=== PATIENT | female | born 1960 | race Caucasian/White ===

== ENCOUNTER 2020-04-21 11:57 | Outpatient (CLI) | payer BC, SELFPAY ==
--- NOTE | ~2020-04-21 | XR_ITS ---
EXAMINATION: XR hip BI 2V w AP pelvis EXAM DATE: 04/21/2020 12:27 INDICATION: No known recent injury provided at this time. Pain of the hips. TECHNIQUE: Each hip imaged independently (separate right and also left hip) 'frog leg' and frontal p rojections for interpretation. Frontal projection pelvis. There is no prior study for comparison. FINDINGS: No radiographic evidence of hip avascular necrosis. There is mild symmetric bilateral hip primary osteoarthritis. There are no acute fractures or dislocations identified. There is no subcuta neous gas. The soft tissue is unremarkable. There are no radiopaque foreign bodies. IMPRESSION: Mild symmetric bilateral hip osteoarthritis. Reviewed, dictated and finalized at location A.
--- NOTE | ~2020-04-21 | XR_ITS ---
EXAMINATION: XR knee LT 2V DATE: 04/21/2020 12:26 INDICATION: Left knee pain. TECHNIQUE: 2 views of left knee were obtained. COMPARISON: None. FINDINGS: Bone alignment is normal. No fracture. There is mild osteoarthritis of patellofemoral reymundo rtment. No knee joint effusion. IMPRESSION: 1. Mild left knee osteoarthritis. Reviewed, dictated and finalized at location B.
--- NOTE | ~2020-04-21 | XR_ITS ---
XR lumbar spine min 4V DATE: 04/21/2020 12:27 INDICATION: Left side back pain. Sciatica. TECHNIQUE: AP, lateral, coned lateral lumbosacral views. COMPARISON: None FINDINGS: There is moderate levoscoliosis of the thoracolumbar spine. There is severe degenerative disc disease at L2-3. There is moderate degenerative disc disease at L3-4. No fracture or bone destruction. The lower thoracic and lumbar pedicles are intact. The sacroiliac joints are normal. There is extensive calcification of the abdominal aorta and iliac arteries. IMPRESSION: Levoscoliosis and multi-level degenerative disc disease Reviewed, dictated and finalized at location A.
== END 2020-04-21 11:58 | disposition home or self-care (01) ==
LOC: ANHIMG 12:04
PROVIDERS: PCP Family Medicine; Visit Provider Family Medicine
DX: M54.42 Lumbago with sciatica, left side (principal); M25.551 Pain in right hip; M25.552 Pain in left hip; M25.562 Pain in left knee; M16.0 Bilateral primary osteoarthritis of hip; M41.86 Other forms of scoliosis, lumbar region; M51.36 Other intervertebral disc degeneration, lumbar region
CPT/HCPCS: 72110; 73521; 73560

== ENCOUNTER → 2021-05-20 11:38 | Outpatient (CLI) | payer BC, SELFPAY ==
--- NOTE | ~2021-05-20 | XR_ITS ---
EXAMINATION: XR knee LT min 4V DATE: 05/20/2021 11:56 INDICATION: Left knee pain. TECHNIQUE: 4 views of left knee were obtained. COMPARISON: Left knee radiographs 04/21/2020 FINDINGS: Bone alignment is normal. No fracture. Joint spaces are well maintained. There is no knee j oint effusion. IMPRESSION: 1. Normal left knee. Reviewed, dictated and finalized at location A. IMPRESSION: 1. Normal left knee.
== END ==
PROVIDERS: PCP Family Medicine; Visit Provider Family Medicine
DX: M25.562 Pain in left knee (principal)
CPT/HCPCS: 73564

== ENCOUNTER → 2022-08-26 10:54 | Outpatient (CLI) | payer BC, SELFPAY ==
--- NOTE | ~2022-08-26 | XR_ITS ---
AP view of the pelvis and AP and lateral views of the bilateral hips Clinical history: Pain Findings: No acute fracture or dislocation is seen. Osseous alignment is anatomic. Bilateral hip and SI joint spaces are preserved. There is calcific focus just above the right greater trochanter.. Impression: Calcific tendinitis of a right gluteal tendon, likely gluteus medius versus minimus. Reviewed, dictated and finalized at location [] DCARE ADMINISTRATOR Impression: Calcific tendinitis of a right gluteal tendon, likely gluteus medius versus min imus.
--- NOTE | ~2022-08-26 | XR_ITS ---
Left Hand Technique: PA, oblique, and lateral views were obtained. Clinical History: Pain Findings: No acute fracture or dislocation is seen. Osseous alignment is anatomic. Joint spaces are p reserved. Soft tissues are unremarkable. Impression: Unremarkable left hand. Reviewed, dictated and finalized at location [] ER UP Impression: Unremarkable left hand.
--- NOTE | ~2022-08-26 | XR_ITS ---
Left wrist Technique: PA, oblique, lateral, and ulnar deviation views were obtained. Clinical History: Pain Findings: No acute fracture or dislocation is seen. Osseous alignment is anatomic. Joint spaces are p reserved. Soft tissues are unremarkable. Impression: Unremarkable left wrist radiographs. Reviewed, dictated and finalized at location [] NG VAN DRIVER Impression: Unremarkable left wrist radiographs.
--- NOTE | ~2022-08-26 | XR_ITS ---
Lumbosacral Spine: AP, oblique, and lateral views Clinical History: Back pain COMPARISON: 04/21/2020 Findings: Mild levoscoliosis noted. The vertebral bodies and posterior elements are intact. Moderate degenerative disc space narrowing is present at L2-L3.. And facet joint degenerative changes are pre sent at L4-L5 and L5-S1. The sacroiliac joints are normally outlined. Impression: Mild levoscoliosis, and degenerative changes, as detailed above, similar to 04/21/2020. Reviewed, dictated and finalized at location [] ING SUPERVISOR Impression: Mild levoscoliosis, and degenerative changes, as detailed above, similar to 04/12.
== END ==
PROVIDERS: PCP Family Medicine; Visit Provider Family Medicine
DX: M25.532 Pain in left wrist (principal); M79.642 Pain in left hand; M25.551 Pain in right hip; M54.42 Lumbago with sciatica, left side
CPT/HCPCS: 72110; 73110; 73130; 73521

== ENCOUNTER 2023-01-21 19:25 | Observation (INO) | payer BC, SELFPAY ==
[2023-01-21] VITALS (7 sets, daily range): BP systolic 112–131; BP diastolic 72–84; PULSE 86–107; RESP 14–18; TEMP 36.4–36.6; O2SAT 97–100; BMI 23.5
--- NOTE | ~2023-01-21 | MR_ITS ---
EXAMINATION: MR brain/brain stem wo/w con DATE: 01/22/2023 10:07 INDICATION: Transient neurologic changes. History of brain cancer. TECHNIQUE: Magnetic resonance imaging (MRI) of the brain and brainstem was performed without and with 12 cc MultiHance intravenous contrast. Sequences included sagittal and axial T1-weighted SE, axial d iffusion-weighted FS SE, axial T2*-weighted GRE, axial T2-weighted FLAIR Propeller, and axial T2-weig hted Propeller. Apparent diffusion coefficient (ADC) maps were created. COMPARISON: CTA dated 01/21/2023. FINDINGS: There are chronic infarctions of the left frontal and parietal lobes. There are scattered s evere no abnormally enhancing masses. Orbits are symmetric. Structures of the posterior fossa includi ng 7/8th cranial nerve complexes are unremarkable. periventricular and subcortical white matter lopez es, most likely related to small vessel ischemic disease (microangiopathy). There is mild mucosal thi ckening of the maxillary and ethmoid sinuses. No acute infarction, hemorrhage or mass effect. IMPRESSION: 1. No acute intracranial abnormality. 2: Chronic infarctions of the left frontal and parietal lobes. 3: Chronic age-related findings. 4: Moderate sinus disease. Reviewed, dictated and finalized at location A.
--- NOTE | ~2023-01-21 | CT_ITS ---
EXAMINATION: CTA brain carotid DATE: 01/21/2023 19:56 INDICATION: Left hemiparesis. TECHNIQUE: Computed tomographic angiography (CTA) of the head was performed without and with 100 mL O mnipaque-350 intravenous contrast. CTA of the neck was performed with intravenous contrast. Automated exposure control and iterative reconstruction technique were employed. The dose-length product was 1 723.99 mGy-cm. Maximum intensity projection and volume rendered 3D-reconstructions were created by maldonado parra technologist on a separate workstation. COMPARISON: None. FINDINGS: HEAD CTA: There are old infarcts involving left frontal and parietal lobes. There are scattered areas of low attenuation in the cerebral white matter. There is no intracranial hemorrhage, acute infarcti on, or abnormal intracranial mass lesion. The ventricles are normal in size. There are likely changes of ocular lens replacement surgeries. There are changes of left-sided craniotomy. There is an osteom a at superior aspect of the skull. There is mucosal thickening in the paranasal sinuses. There is a s mall right mastoid effusion. There is left vertebral artery is dominant. There is no significant sten osis of basilar artery or the posterior cerebral arteries. The posterior communicating arteries are n ormal. There is no significant stenosis of the intracranial internal carotid arteries or anterior or middle cerebral arteries. Anterior communicating artery is normal. There is no aneurysm. NECK CTA: There is mild emphysema. There is a 15 mm nodule in right upper lobe. There are no patholog ically enlarged lymph nodes. Aortic atherosclerosis is noted. There is no significant stenosis of the vertebral arteries. There is plaque in the proximal internal carotid arteries. There is 0% stenosis of the proximal right internal carotid artery relative to normal distal artery lumen diameter (NASCE T criteria). There is 0% stenosis of the proximal left internal carotid artery relative to normal dis zahida artery lumen diameter. There is severe cervical spondylosis. There is mild chronic anterior wedgi ng of C6 and C7 vertebral bodies. Partially visualized is a right internal jugular port. IMPRESSION: 1. Old infarcts involving the left frontal and parietal lobes. I discussed this result with Dr. Tracey. 2. Extensive nonspecific cerebral white matter disease, which likely represents chronic small vessel ischemic disease. 3. No aneurysm or significant intracranial arterial stenosis. 4. 0% stenosis of the proximal internal carotid arteries relative to normal distal artery lumen diame ters (NASCET criteria). 5. 15 mm right upper lobe pulmonary nodule suspicious for primary bronchogenic carcinoma or metastati c disease. Comparison with outside imaging is recommended. Reviewed, dictated and finalized at location E. IMPRESSION: 1. Old infarcts involving the left frontal and parietal lobes. I discussed this result with Dr. Tracey. 2. Extensive nonspecific cerebral white matter disease, which likely represents chronic small vessel ischemic disease. 3. No aneurysm or significant intracranial arterial stenosis. 4. 0% stenosis of the proximal internal carotid arteries relative to normal dis zahida artery lumen diameters (NASCET criteria). 5. 15 mm right upper lobe pulmonary nodule suspicious for primary bronchogenic carcinoma or metastatic disease. Comparison with outside imaging is recommended .
--- NOTE | ~2023-01-21 | XR_ITS ---
EXAMINATION: XR chest 1V portable DATE: 01/21/2023 20:11 INDICATION: Left hemiparesis. Bladder and lung cancer. TECHNIQUE: A single frontal view of the chest was obtained. COMPARISON: Chest 2 views 06/09/2006 FINDINGS: There is a nodule in right upper lobe. No pleural effusion or pneumothorax. The heart size is normal. There is a right internal jugular port with tip at superior cavoatrial junction. There are surgical clips in the left breast and left axilla. IMPRESSION: 1. Nodule in right lung upper lobe, consistent with primary bronchogenic carcinoma or metastatic dise ase. Reviewed, dictated and finalized at location E. IMPRESSION: 1. Nodule in right lung upper lobe, consistent with primary bronchogenic carcin getachew or metastatic disease.
[2023-01-21 19:51] LABS: Estimated Glomerular Filt Rate > 60
--- NOTE | 2023-01-21 20:00 | ECG_ITS ---
Measurements Intervals Foley Rate: 90 P: 59 NH: 168 QRS: 66 QRSD: 90 T: 40 QT: 370 QTc: 455 Interpretive Statements SINUS RHYTHM NORMAL ECG NO PREVIOUS ECG AVAILABLE FOR COMPARISON Electronically Signed On 01-21-2023 20:19:31 CDT by Alex Meza D.O.
[2023-01-21 20:15] LABS: Basophils Percent Auto 0.1 % (0.2-1.2); Eosinophils Absolute Auto 0.2 K/mm3 (0-0.3); Eosinophils Percent Auto 2.4 % (0-4.4); Hematocrit 46.2 % (37.0-47.0); Hemoglobin 15.6 g/dL (12.0-15.0); Immature Granulocyte Absolute 0.03 K/mm3 (0.00-0.031); Immature Granulocyte Percent A 0.4 % (0-0.5); Lymphocytes Absolute Auto 2.54 K/mm3 (0.9-3.2); Lymphocytes Percent Auto 32.5 % (18.3-44.2); Mean Corpuscular HGB Conc 33.8 g/dl (32-36); Mean Corpuscular Hemoglobin 29.9 pg (26-34); Mean Corpuscular Volume 88.5 fl (80-100); Mean Platelet Volume 10.1 fl (7.4-10.4); Monocytes Absolute Auto 0.8 K/mm3 (0.1-0.6); Neutrophils Absolute Auto 4.3 K/mm3 (1.3-6.7); Neutrophils Percent Auto 54.6 % (45.5-73.1); Platelet Count Result 211 k/mm3 (150-375); Red Blood Count 5.22 M/mm3 (4.2-5.4); Red Cell Distribution Width 12.3 % (11.5-14.5); White Blood Count 7.8 K/mm3 (4.5-10.0)
[2023-01-21 20:24] LABS: Alanine Aminotransferase 66 U/L (6-35); Albumin Level 4.5 g/dL (3.5-5.1); Alkaline Phosphatase 40 U/L (38-126); Anion Gap 7 mmol/L (8-16); Aspartate Amino Transferase 56 U/L (14-36); Bilirubin,Total 0.5 mg/dL (0.2-1.3); Blood Urea Nitrogen 21 mg/dL (7-17); Calcium 8.9 mg/dL (8.4-10.2); Carbon Dioxide 29 mmol/L (22-30); Chloride 97 mmol/L (98-107); Estimated Glomerular Filt Rate > 60; Glucose 93 mg/dL (65-110); Sodium 133 mmol/L (137-145)
[2023-01-21 20:26] LABS: Prothrombin Time 13.1 Seconds (11.1-14.7)
[2023-01-21 20:27] LABS: Partial Thromboplastin Time 28.7 SECONDS (22.3-36.8)
--- NOTE | 2023-01-21 20:30 | ED.GENADULT ---
HPI - General Adult General Chief complaint: Neuro Symptoms/Deficit Stated complaint: aphasic at 1730, no symptoms now Time Seen by Provider: 01/21/23 19:40 History of Present Illness HPI narrative: A 62-year-old female with a history of breast lung bladder and brain cancer presenting ED with stroke-like symptoms. At 5: 3:00 p.m. the patient noticed that she was unable to speak. This lasted 15 minutes before she had complete resolution of her symptoms. Then at 6:00 a.m. she was having trouble writing. That also resolved after approximately 15 minutes. Patient then came to the hospital. She is currently asymptomatic. She denies any other complaints at this time. Patient has had metastasis to the brain with a craniotomy as well as full brain radiation. Patient obtained her oncology care at [facility] but has recently been switched to [facility] due to insurance reasons. Related Data Home Medications Medication Instructions Recorded Confirmed acetaminophen 325 mg capsule 325 mg PO Q6H PRN 06/01/21 08/26/22 (Tylenol) folic acid 1 mg tablet 1 mg PO DAILY 06/01/21 08/26/22 collagen Hydrolysate BYMOUTH 04/21/22 08/26/22 dexamethasone 4 mg tablet 8 mg PO DAILY PRN chemotherapy 04/21/22 08/26/22 [id number]-Gn-sjax-minerals 18 tablet PO . daily 04/21/22 08/26/22 mg-0.4 mg tablet nasal moisturizing spray intranasal 04/21/22 08/26/22 Allergies Allergy/AdvReac Type Severity Reaction Status Date / Time No Known Allergies Allergy Mild Verified 06/01/21 13:19 [facility] Past Medical History Medical History Abnormal fasting glucose Acute bilateral low back pain with left-sided sciatica Acute non-recurrent maxillary sinusitis Acute pain of left wrist X-ray unremarkable 08/26/2022. Acute right hip pain X-ray unremarkable except for evidence of calcific tendinitis in the gluteal area of the right hip 08/26/2022. Allergic conjunctivitis Anxiety At high risk for falls (~07/2022) the patient has fallen twice in the last month. She will be careful not to fall. 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 Polycythemia Seasonal allergic rhinitis Seizure disorder Urinary bladder cancer Vertigo Surgical History Surgical History S/P craniotomy Family History Family History Father Diabetes mellitus Bladder cancer Mother Diabetes mellitus Cerebrovascular accident Social History Social History Years smoked: 25 Smoking status: Former smoker Tobacco type: cigarettes Smoking end date: 09/12/06 Alcohol intake: current Alcohol use details: socially Substance use: never Substance use type: does not use Current Housing: Decline to Answer Concerned About Future Housing: Decline to Answer Difficulty Paying Gas/Electric Bills: Decline to Answer Difficulty Paying for Meds: Decline to Answer Currently Unemployed: Decline to Answer Education: Decline to Answer Difficulty w/ Childcare or Family Care: Decline to Answer Living arrangements: alone Occupation/Education: retired Gender identity (if verbalized by the patient): Female Exam Narrative: APPEARANCE: No apparent distress. Hea
[2023-01-21 20:36] LABS: Troponin I < 0.012 ng/mL (0.000-0.034)
[2023-01-21] MEDS: ASPIRIN 81 MG CHEWABLE TABLET 324 MG PO (21:01)
[2023-01-21] MEDS: SODIUM CHLORIDE 0.9% IV 1,000 ML 999 ML IV CONT (21:01)
--- NOTE | 2023-01-21 23:11 | ADMGEN ---
This patient, Leann Newman, was admitted to Medical Room 348-01. Patient/family oriented to hospital policies and general routines including ID bracelet, bed and alarms, visiting hours, pain management, procedures, bathroom and other care routines, personal items, smoking policy, room service/diet, and visiting hours. Information on how to activate the Rapid Response Team has been discussed. Patient/Family are encouraged to report perceived risks to care and to ask questions if they do not understand what they are told or what they should do.
--- NOTE | 2023-01-21 23:31 | PM.IMHP ---
H&P: HPI History of Present Illness Date/Time: 01/21/23 23:31 Chief Complaint: Difficulty speaking, difficulty writing Narrative: 62-year-old female with a past medical history of anxiety, stroke, COPD and metastatic lung cancer with metastases to the brain who presented to the ER with neurologic changes. Patient reported that around 17:30 she was unable to speak for 15-20 minutes. She states that she could not get any words out. Then approximately 30 minutes later after her initial symptoms had resolved she states that she was at a visitation at a and went to sign a check. She is stated that she was having more trouble than usual riding in that her penmanship appeared shaky. She does have some trouble in has to concentrate when she is writing ever since she had her brain tumor removed in 2019. She reported that a couple of minutes later she went to sign the cast book and was able to sign her name without difficulty. She had similar symptoms in July 2021. Her CTA of the head and neck performed in the ER today demonstrated old infarcts involving the left frontal and parietal lobes and extensive nonspecific cerebral white matter disease likely representing chronic small-vessel ischemia. She denies history of prior CVA. She has also had history of craniotomy with resection of brain tumor as well as full brain radiation. She went for her follow-up appointment with Oncology last week. They performed an MRI of the brain and brainstem and patient reports that her imaging was stable and unchanged from prior. She reports that she has been feeling more tired than usual. She evidently recently got back from a trip to [place]. After she returned home she had several days of fatigue and diarrhea. She has some that she had the flu. Her diarrhea has since resolved. She still reports feeling fatigued. She has not been having any fevers or chills. She denies any persistent nausea. She thinks that she may have had a history of an irregular heartbeat but does not have a known history of atrial fibrillation to her knowledge. She denies any upper respiratory symptoms. She denies any headaches or vision changes. She did have a history of 1 time seizure when she was 1st diagnosed with brain Mets and prior to the resection. She denies having any seizures after that time She was initially treated at [facility] for her cancer but recently had to switch her care to [facility] due to insurance issues. I suggested that the ER contact [facility] since they had the patient's most recent imaging and her following for her malignancy as I thought it would be best for comparison of imaging specially in the setting of possible acute ischemic event. ER physician [facility] who accepted the patient in transfer but stated that it may be couple of days prior to the patient receiving a bed. The patient was subsequently admitted here for evaluation. At the time of my evaluation the patient was quite upset that she may end up being transferred to [facility]. She states that they do not have any of her prior imaging and I tried to explain to her that she recently had an MRI so that would be her baseline. Patient did not agree with this and would rather stay at our hospital. Source of information is patient report, ER physician report, and external medical records. Review of Systems Review of Systems: 12 systems were reviewed with pertinent positives and negatives per HPI. Except as documented in the HPI, all other systems were reviewed and are negative. [facility] Past Medical History Medical History (Updated 01/22/23 @ 04:19 by Perla Mireles, DO) Abnormal fasting glucose Acute right hip pain X-ray unremarkable except for evidence of calcific tendinitis in the gluteal area of the right hip 08/26/2022. Allergic conjunctivitis At high risk for falls (~07/2022) the patient has fallen twice in the last month. She will be careful not to fall. Bilateral hip pain BMI 23
[2023-01-22] VITALS: PULSE 98
--- NOTE | 2023-01-22 | ECHO_ITS ---
Patient Info Name: Leann Newman Age: 62 years : 1960 Gender: Female Ht: 63 in Wt: 132 lbs BSA: 1.64 m2 HR: 101 bpm BP: 116 / 61 mmHg Heart Rhythm: Sinus Rhythm Technical Quality: Good Exam Date: 01/22/2023 8:07 AM Exam Location: [facility] Card Pulmonary Patient Status: Inpatient Admit Date: 01/21/2023 Staff Ordering Physician: Mahin Gallo Cover Machine Operator: Leann Moreno RDCS Attending Provider: Perla Mireles DO Referring Physician: Sabino RESENDIZ; Exam Type: CA echo doppler w bubble study Study Info Indications R29.5 - Transient paralysis Complete two-dimensional, color flow and Doppler transthoracic echocardiogram is performed with agitated saline. Contrast/Agitated Saline Contrast/Ag. Saline: Agitated Saline Amount: 10.00 ml Summary 1. Left ventricular size and thickness with good contractility of all segments. Ejection fraction is 55-60%. Normal diastolic function. 2. No significant valve disease. 3. No evidence of intracardiac shunting during normal respiration or Valsalva by bubble study. 4. Normal sinus rhythm. Left Ventricle Left ventricular chamber dimension is normal. Left ventricular systolic function is normal, estimated at 55-60%. There is no increased left ventricular wall thickness. Left ventricular septal wall motion is normal. The left ventricular diastolic function is normal. Right Ventricle Right ventricular chamber dimension is normal. Right ventricular systolic function is normal. Left Atria Left atrial chamber dimension is normal. Right Atria Right atrial chamber dimension is normal. Aortic Valve The aortic valve is trileaflet. There is no aortic valve sclerosis. There is no aortic valve stenosis. There is no aortic valve regurgitation. Pulmonic Valve The pulmonic valve is normal. There is no pulmonic valve stenosis. There is no pulmonic regurgitation. Mitral Valve The mitral valve has normal leaflets. There is no mitral valve stenosis. There is no mitral valve regurgitation. Tricuspid Valve The tricuspid valve leaflets are normal. There is no significant tricuspid valve stenosis. There is no tricuspid valve regurgitation. No pulmonary hypertension, estimated pulmonary arterial systolic pressure is Empty. Pericardium/Pleural The pericardium appears normal. There is no pericardial effusion. Inferior Vena Cava Normal inferior vena cava with >50% collapse upon inspiration consistent with Empty right atrial pressure, Empty. Aorta The aortic root size at the sinus of Valsalva is normal. The prox ascending aorta size is normal. Left Ventricular Outflow Tract Name Value Normal LVOT 2D LVOT Diameter 1.9 cm LVOT Doppler LVOT Peak Gradient 2 mmHg LVOT Mean Gradient 1 mmHg LVOT VTI 15 cm LVOT VTI/AV VTI Ratio 0.9 LVOT Stroke Volume 43 ml LVOT CO 3.8 l/min LVOT CI 2.3 l/min/m2 Pulmonic Valve Nam
[2023-01-22] MEDS: ROSUVASTATIN 10 MG TABLET PO (01:16)
[2023-01-22 04:00] VITALS: PULSE 87
[2023-01-22 04:01] VITALS: BP 116/61; PULSE 100; RESP 18; TEMP 36.6; O2SAT 96
[2023-01-22] MEDS: CENTRAL LINE FLUSH 10 ML IV PUSH (05:46)
[2023-01-22 06:24] LABS: Cholesterol 133 mg/dL (0-200); HDL Direct 43 mg/dL; Triglycerides 143 mg/dL (<150)
[2023-01-22 06:35] LABS: LDL Cholesterol Direct 63 mg/dL
[2023-01-22 07:35] VITALS: PULSE 82; RESP 18; O2SAT 96
[2023-01-22] MEDS: UMECLIDINIUM/VILANTEROL 62.5-25 MCG ELLIPTA 1 PUFF INHALATION (07:35)
[2023-01-22] MEDS: ACETAMINOPHEN 325 MG TABLET 650 MG PO (08:06)
--- NOTE | 2023-01-22 08:40 | PM.IMPN ---
Progress Note: A&P Assessment and Plan (1) Transient neurological symptoms: Code(s): R29.818 - Other symptoms and signs involving the nervous system Status: Acute Assessment and Plan: Differential includes seizure, TIA/CVA, or recurrent malignant lesion. [facility] was contacted as they are familiar with the patient's case and at prior comparison studies available given patient's history of brain tumor. Neurology at [facility] has accepted the patient transfer but patient is awaiting bed placement. The patient has been admitted while awaiting bed placement however, the patient states that [facility] with like to receive all of her care here since she does not have a neurologist at [facility]. Will order MRI of the brain and brainstem with and without contrast. Our neurologist has been consulted. Patient received full-dose aspirin in the ER. Will continue to monitor neuro checks q.4 hours. The patient has been placed on telemetry to evaluate for possible underlying cardiac rhythm issues such as AFib which could lead to increased risk of stroke especially since patient has evidence of likely prior CVAs on imaging. Await further recommendations from Neurology. (2) Non-small cell carcinoma of lung, right: Onset Date: ~2019 Code(s): C34.91 - Malignant neoplasm of unspecified part of right bronchus or lung Status: Acute (3) COPD (chronic obstructive pulmonary disease): Qualifiers: COPD type: unspecified COPD Qualified Code(s): J44.9 - Chronic obstructive pulmonary disease, unspecified Code(s): J44.9 - Chronic obstructive pulmonary disease, unspecified Status: Acute Assessment and Plan: No evidence of exacerbation. Continue home inhalers. Time Spent With Patient Time: 48 minutes Time with patient: Greater than 35 minutes Subjective Date/time seen: 01/22/23 08:40 Interval history: 01/22/23 01/21/23? 23:31 62-year-old female with a past medical history of anxiety, stroke, COPD and metastatic lung cancer with metastases to the brain who presented to the ER with neurologic changes.? Patient reported that around 17:30 she was unable to speak for 15-20 minutes.? She states that she could not get any words out.? Then approximately 30 minutes later after her initial symptoms had resolved she states that she was at a visitation at a and went to sign a check.? She is stated that she was having more trouble than usual riding in that her penmanship appeared shaky.? She does have some trouble in has to concentrate when she is writing ever since she had her brain tumor removed in 2019.? She reported that a couple of minutes later she went to sign the cast book and was able to sign her name without difficulty.? She had similar symptoms in July 2021.? Her CTA of the head and neck performed in the ER today demonstrated old infarcts involving the left frontal and parietal lobes and extensive nonspecific cerebral white matter disease likely representing chronic small-vessel ischemia.? She denies history of prior CVA.? She has also had history of craniotomy with resection of brain tumor as well as full brain radiation.? She went for her follow-up appointment with Oncology last week.? They performed an MRI of the brain and brainstem and patient reports that her imaging was stable and unchanged from prior.? She reports that she has been feeling more tired than usual.? She evidently recently got back from a trip to [place].? After she returned home she had several days of fatigue and diarrhea.? She has some that she had the flu.? Her diarrhea has since resolved.? She still reports feeling fatigued.? She has not been having any fevers or chills.? She denies any persistent nausea.? She thinks that she may have had a history of an irregular heartbeat but does not have a known history of atrial fibrillation to her knowledge.? She denies any upper respiratory symptoms.? She denies
[2023-01-22 08:56] LABS: Hemoglobin A1C 5.8 % (<5.7)
--- NOTE | 2023-01-22 09:30 | PM.DS ---
DS: Admitting Diagnosis Discharge Date 01/22/23929 Admitting Diagnosis Episode of neurological changes DS: Discharge Diagnosis Discharge Diagnosis (1) Transient neurological symptoms: Code(s): R29.818 - Other symptoms and signs involving the nervous system Status: Acute Assessment and Plan: Differential includes seizure, TIA/CVA, or recurrent malignant lesion. [facility] was contacted as they are familiar with the patient's case and at prior comparison studies available given patient's history of brain tumor. Neurology at [facility] has accepted the patient transfer but patient is awaiting bed placement. The patient has been admitted while awaiting bed placement however, the patient states that she does not wish to go to [facility] with like to receive all of her care here since she does not have a neurologist at [facility]. Will order MRI of the brain and brainstem with and without contrast. Our neurologist has been consulted. Patient received full-dose aspirin in the ER. Will continue to monitor neuro checks q.4 hours. The patient has been placed on telemetry to evaluate for possible underlying cardiac rhythm issues such as AFib which could lead to increased risk of stroke especially since patient has evidence of likely prior CVAs on imaging. Await further recommendations from Neurology. (2) Non-small cell carcinoma of lung, right: Onset Date: ~2019 Code(s): C34.91 - Malignant neoplasm of unspecified part of right bronchus or lung Status: Acute (3) COPD (chronic obstructive pulmonary disease): Qualifiers: COPD type: unspecified COPD Qualified Code(s): J44.9 - Chronic obstructive pulmonary disease, unspecified Code(s): J44.9 - Chronic obstructive pulmonary disease, unspecified Status: Acute Assessment and Plan: No evidence of exacerbation. Continue home inhalers. DS: Summary Hospital Course Hospital Course: patient is a 62-year-old female with a past medical history of anxiety, stroke, COPD, metastatic lung cancer who presented to the ED with complaints of neurological changes. Patient stated she was awake and went to sinus checking was unable to she also had a moment where she was unable speak for 10-20 minutes. All symptoms have resolved. Patient was noted to have old infarcts on the CTA and 0% stenosis bilaterally. MRI was completed and did not show any acute abnormalities. Lipid panel was stable with LDLs less than 70. Hemoglobin A1c was 5.8. Neurology was consulted. Patient denies any current symptoms. Patient is stable for discharge at this time. Status at Discharge Functional status at discharge: independent ambulation Overall status at discharge: patient is progressing back to baseline Time Spent with Patient Time attestation: Total time spent providing and/or coordinating discharge services: 48 minutes Time spent: Greater than 30 minutes Specific discharge activities: Diagnostic testing, chart review, developing a treatment plan, education, care coordination documentation, physical exam, result review Exam Narrative: General: well-nourished, well-appearing 62-year-old female, sitting up in chair, comfortable, NARD Neuro: awake, alert and oriented x4, speech clear, no focal neuro deficits noted HEENMT: normocephalic, atraumatic, EOMI, sclerae anicteric, moist oral mucosa Respiratory: Clear to auscultation bilaterally without crackles, rhonchi or wheezes, nonlabored breathing Cardio: regular rate, regular rhythm with S1-S2 Abdomen: nondistended, normoactive bowel sounds, soft, nontender to palpation Extremities: no edema, erythema, or tenderness to palpation, DP pulses 2+ bilaterally Skin: no rashes or lesions, warm and dry Psych: appropriate mood and affect, judgment and insight intact DS: Data Data Completed and Pending Labs on day of discharge: Labs from last 24 hours 01/22/23 01/21/23 01/21/23 06:09 20:09 19:48 WBC 7.8 RBC 5.
[2023-01-22] MEDS: HEPARIN SODIUM LOCK FLUSH 500 UNITS/5 ML SYRINGE IV PUSH (13:55)
[2023-01-27 16:53] LABS: Glucose Point of Care 94 mg/dl (65-105)
== END 2023-01-22 14:40 | disposition home or self-care (01) ==
LOC: ANHED 20:42 → ANH3MED 01-22 11:54
PROVIDERS: Admitting Provider Internal Medicine; Emergency Provider Emergency Medicine; PCP Family Medicine; Visit Provider Nurse Practitioner
DX: R29.818 Other symptoms and signs involving the nervous system (principal); C34.91 Malignant neoplasm of unspecified part of right bronchus or lung; C79.31 Secondary malignant neoplasm of brain; J44.9 Chronic obstructive pulmonary disease, unspecified; R47.01 Aphasia; F41.9 Anxiety disorder, unspecified; Z91.81 History of falling; I25.10 Atherosclerotic heart disease of native coronary artery without angina pectoris; F32.A Depression, unspecified; G89.29 Other chronic pain; M54.42 Lumbago with sciatica, left side; M54.41 Lumbago with sciatica, right side; G47.00 Insomnia, unspecified; E78.5 Hyperlipidemia, unspecified; R29.5 Transient paralysis; D75.1 Secondary polycythemia; R56.9 Unspecified convulsions; R42 Dizziness and giddiness; Z79.1 Long term (current) use of non-steroidal anti-inflammatories (NSAID); Z79.899 Other long term (current) drug therapy; F10.90 Alcohol use, unspecified, uncomplicated; R90.82 White matter disease, unspecified; Z87.891 Personal history of nicotine dependence; Z85.3 Personal history of malignant neoplasm of breast; Z86.16 Personal history of COVID-19; Z85.51 Personal history of malignant neoplasm of bladder
CPT/HCPCS: 36415; 70496; 70498; 70553; 71045; 80053; 80061; 82948; 83036; 84484; 85025; 85610; 85730; 93005; 93306; 94640; 96360; 96375; 99285; A9270; A9577; G0378; J1642; J7030; Q9967

== ENCOUNTER 2024-08-06 09:38 | Outpatient (CLI) | payer OTHER, SELFPAY ==
--- NOTE | ~2024-08-06 | NM_ITS ---
EXAMINATION: NM bone scan whole body DATE: 08/06/2024 13:45 INDICATION: Lung cancer with unspecified joint pain TECHNIQUE: 25.1 mCi Tc-99m HDP was administered intravenously. Delayed whole-body scintigrams were o btained. COMPARISON: Brain and carotid CT angiogram dated 01/21/2023 and lumbar spine and pelvis radiographs da josette 07/16/2024 FINDINGS: There is a region of increased uptake at the left side of the vertex the which appears to be associat ed with either a chronic osteoma or an adjacent tiny left parietal craniotomy. There is mild COPD upt ray is/with moderate degenerative disc disease at the lower cervical spine. There is likely degenerat marli joint centered uptake at the left acromioclavicular joint. There is additional likely degenerativ e disc and/or facet joint related uptake along the convex right side of the lumbar spine at L2-L3 and L3-L4.. Additional likely facet joint related increased uptake at the left L3-L4 through L5-S1 facet joints.. Likely degenerative focus of mild uptake in the region of the posterior inferior right sacr oiliac joint with moderate osteoarthritis evident on the prior radiographs. There is mild uptake michel g the bilateral anterior tibial metaphyses which could be seen in the setting of hypertrophic pulmona ry osteoarthropathy secondary to reported lung cancer. IMPRESSION: 1. No lesion suspicious for metastatic disease. 2. Mild uptake along the diaphyses of the bilateral tibiae which could be seen in the setting of lung cancer related hypertrophic pulmonary osteoarthropathy. Reviewed, dictated and finalized at location A. EMIC SPECIALIST
== END 2024-08-06 09:39 | disposition home or self-care (01) ==
PROVIDERS: PCP Family Medicine; Visit Provider Orthopaedic Surgery
DX: M25.50 Pain in unspecified joint (principal); Z85.118 Personal history of other malignant neoplasm of bronchus and lung
CPT/HCPCS: 78306; A9503

== ENCOUNTER 2025-05-31 13:11 | Outpatient (CLI) | payer OTHER, SELFPAY ==
--- OUTSIDE RECORDS SUMMARY | 2025-05-31 13:00 | XMS_ITS | Encounter Summary ---
Author Organization [facility] Address [address] [place] [address] Care Team Providers Care Inspector [employer] Name Role Phone Anderson Hartley MD Primary Care Provider [phone] Reason for Referral * MRI (Routine) - Authorized Specialty Diagnoses / Procedures Referred By Kendrick t Referred To Contact Diagnoses Malignant neoplasm of lung, unspecified laterality, unspecified part of lung (CMS/HCC) Procedures MRI BRAIN W WO CONTRAST Kevin Dunlap MD [address] [place] [id number] Phone: tel: fax: Referral ID Status Reason Start Date Expiration Date V isits Requested Visits Authorized [id number] Authorized 05/31/2025 07/01/2026 1 1 * CT Scan (Routine) - Authorized Specialty Diagnoses / Procedures Referred By Kendrick t Referred To Contact Diagnoses Malignant neoplasm of lung, unspecified laterality, unspecified part of lung (CMS/HCC) Procedures CT CHEST ABDOMEN PELVIS W CONT Kevin Dunlap MD [address] [place] [phone] Phone: tel: fax: Referral ID Status Reason Start Date Expiration Date V isits Requested Visits Authorized [id number] Authorized 05/31/2025 07/01/2026 1 1 Encounter Details Date Type Department Care Team (Late st Contact Info) Description 05/31/2025 1:00 PM CDT Office Visit [facility] Oncology and Hematology [facility] [address] [place] [address] Kevin Dunlap MD [address] [facility] [employer] [address] [place] [address] Malignant neoplasm of lung, unspecified laterality, unspecified part of lung (CMS/HCC) (Primary Dx) Social History Tobacco Use Types Packs/Day Years Used Date Smoking Tobacco: Former Cigarettes 0.5 35 0 12/26/1971 - 12/25/2006 Smokeless Tobacco: Never Tobacco Cessation:Counseling Given: Not Answered Alcohol Use Standard Drinks/Week Comments Not Currently 0 (1 standard drink = 0.6 oz pur e alcohol) moderate Comments No Sex and Gender Information Value Date Recorded Sex Assigned at Not on file Legal Sex Female 5:42 AM TE[employer] Gender Identity Not on file Sexual Orientation Not on file documented as of this encounter Last Filed Vital Signs Vital Sign Reading Time Taken Comments Blood Pressure 98/66 05/31/2025 12:21 PM CDT Pulse 94 05/31/2025 12:21 PM CDT Temperature 36.6 C (97.8 F) 05/31/2025 12:21 PM CDT Respiratory Rate 16 05/31/2025 12:21 PM CDT Oxygen Saturation 97% 05/31/2025 12:21 PM CDT Inhaled Oxygen Concentration - - Weight 55.5 kg (122 lb 6.4 oz) 05/31/2025 12:21 PM CDT Height 160 cm (5' 3) 05/31/2025 12:21 PM CDT Body Mass Index 21.68 05/31/2025 12:21 PM CDT documented in this encounter Plan of Treatment Upcoming Encounters Date Type Department Care Team (Late st Contact Info) Description 06/18/2025 4:30 PM CDT Telephone Check Up [facility] Oncology and Hematology [facility] [address] [place] [address] Kevin Dunlap MD [address] [facility] [employer] [address] [place] [address] Scheduled Orders Name Type Priority Associated Diagnoses Orde r Schedule CBC WITH DIFFERENTIAL Lab Stat Malignant neoplasm of lung, unspecified laterality, unspecified part of lung (CMS/HCC) Expected: 05/31/2025, Expires: 05/31/2026 COMPREHENSIVE METABOLIC PANEL Lab Stat Malignant neoplasm of lung, unspecified laterality, unspecified part of lung (CMS/HCC) Expected: 05/31/2025, Expires: 05/31/2026 CT CHEST ABDOMEN PELVIS W CONT Imaging Routine Malignant neoplasm of lung, unspecified laterality, unspecified part of lung (CMS/HCC) Expected: 06/07/2025, Expires: 05/31/2026 MRI BRAIN W WO CONTRAST Imaging Routine Malignant neoplasm of lung, unspecified laterality, unspecified part of lung (CMS/HCC) Expected: 06/01/2025, Expires: 05/31/2026 documented as of this encounter Visit Diagnoses Diagnosis Malignant neoplasm of lung, unspecified laterality, unspecified part of lung (CMS/HCC)- Primary documented in this encounter Care Teams Inspector [employer] Relationship Specialty Start Date End Date Anderson Hartley MD [facility] [place] [phone] PCP - General 11/05/08 documented as of this encounter
--- OUTSIDE RECORDS SUMMARY | 2025-05-31 13:15 | XMS_ITS ---
Author Organization [facility] Address [address] [place] [address] Care Team Providers Care Carpentry Specialist Name Role Phone Anderson Hartley MD Primary Care Provider [phone] Matt German MD PhD Unavailable Bhavesh Bhatia MD Unavailable Justin Rollins MD Unavailable Katherine James MD Unavailable Ponce Hughes MD Unavailable [phone] Active Problems Patient Care Coordination No te Formatting of this note migh t be different from the original. Dizziness Problem Noted Date Diagnosed Date Vitreous prolapse of right eye 04/29/2025 Pseudophakia of left eye 03/21/2025 Assessment & Plan (03/21/2025 9:56 AM CDT): POW1 Exchange Intraocular Lens - Left Postoperative instructions were given. The patient is to use: Prednisolone Acetate 1% QID with taper over 3 weeks Signs, symptoms of retinal detachment, tear, hole, and endophthalmitis were reviewed and the patient is to call immediately for concerns. We discussed that things should improve until they stabilize. Should there be any worsening of pain, vision, or redness the patient is to call. She will proceed with exchange OD plano. Mechanical complication due to ocular lens prost hesis 02/05/2025 Assessment & Plan (05/21/2025 10:06 AM CDT): POW1 Exchange Intraocular Lens - Right Postoperative instructions were given. The patient is to use: Prednisolone Acetate 1% QID with taper over 3 weeks Signs, symptoms of retinal detachment, tear, hole, and endophthalmitis were reviewed and the patient is to call immediately for concerns. We discussed that things should improve until they stabilize. Should there be any worsening of pain, vision, or redness the patient is to call. She will follow locally for IOP check and MRx Assessment & Plan (05/15/2025 9:12 PM CDT): POD1 Exchange Intraocular Lens - Right POM2 left eye lens exchange 2/2 glare from multifocal lens Postoperative instructions were given. The patient is to use: moxifloxacin QID X 1 week Prednisolone Acetate 1% QID Diamox bid for 3 days Patient is to wear the shield at bedtime X 1 week. Signs, symptoms of retinal detachment, tear, hole, and endophthalmitis were reviewed and the patient is to call immediately for concerns. We discussed that things should improve until they stabilize. Should there be any worsening of pain, vision, or redness the patient is to call. Followup 1 week or sooner prn issues. Assessment & Plan (03/20/2025 11:01 PM CDT): POW1 Exchange Intraocular Lens - Left Exchanged for MFIOL intolerance. Doing well. Postoperative instructions were given. The patient is to use: Prednisolone Acetate 1% QID with taper over 3 weeks Signs, symptoms of retinal detachment, tear, hole, and endophthalmitis were reviewed and the patient is to call immediately for concerns. We discussed that things should improve until they stabilize. Should there be any worsening of pain, vision, or redness the patient is to call. Follow up in 1 month. Assessment & Plan (03/14/2025 12:22 PM CDT): POD1 Exchange Intraocular Lens - Left Doing well. VA 20/30-1, IOP 15, some D-folds. Postoperative instructions were given. The patient is to use: Moxifloxacin QID X 1 week OS Prednisolone Acetate 1% QID OS Diamox 500mg BID x3 days Patient is to wear the shield at bedtime X 1 week. Signs, symptoms of retinal detachment, tear, hole, and endophthalmitis were reviewed and the patient is to call immediately for concerns. We discussed that things should improve until they stabilize. Should there be any worsening of pain, vision, or redness the patient is to call. Followup 1 week or sooner PRN. Assessment & Plan (02/05/2025 10:36 AM CDT): Glare with MFIOL. Getting in the way of her ADL's. She does not wear MRx. Discussed will need MRx afterwards. Discussed RBA in detail including need for additional surgery. PT agrees to proceed with intend bag for bag exchange OS then OD. Gilbert target. OS IOL exchange/possible vitrectomy OD to follow 2 mo apart. IOLM ASC Anemia 09/13/2024 Assessment & Plan (09/24/2024 11:43 AM SOIL CONSERVATION AIDE): Improved, H/H 11.5/35.5 Assessment & Plan (09/14/2024 2:11 PM SOIL CONSERVATION AIDE): Stable, H&H 10.9/34.1. Continue to monitor Discharge planning issues 08/31/2024 Assessment & Plan (09/03/2024 10:03 AM SOIL CONSERVATION AIDE): 08/30 OR with Ortho 08/31 PT/OT evaluation 09/01 PT/OT Recommends SNF 09/03 -current Patient is medically stable for discharge, SW/CM updated. Discharge pending facility bed availability Treatment Plan Note Completed Osteoarthritis of knee 08/30/2024 Pain in limb 08/30/2024 Fall, initial encounter 08/29/2024 Assessment & Plan (08/29/2024 7:59 PM SOIL CONSERVATION AIDE): - unknown if mechanical vs syncopal - reports recent bouts of dizziness - will consider syncopal work up Left displaced femoral neck fracture 08/29/2024 Assessment & Plan (09/24/2024 11:45 AM SOIL CONSERVATION AIDE): S/P ORIF. weight-bearing as tolerated with abduction brace in place. Abduction pillow in place while in bed. Continue Eliquis for DVT prophylaxis through 09/27/24. Pain is adequately controlled, continue p.r.n. Tylenol, oxycodone 7.5 mg q.6 hours p.r.n Pt was felt stable for discharge 09/24/24. Will arrange home health. Follow up as scheduled with orthopedic surgery Assessment & Plan (09/18/2024 11:34 AM SOIL CONSERVATION AIDE): Pain is controlled, continue p.r.n. Tylenol, p.r.n. oxycodone, p.r.n. Flexeril. Continue Eliquis for DVT prophylaxis. Continue to use brace and abduction pillow as ordered. Joanna can come out today Assessment & Plan (09/14/2024 2:13 PM SOIL CONSERVATION AIDE): Patient was extremely frustrated regarding her brace and abduction pillow training by staff. She does not feel she is making progress and does not feel that she should be here to continue therapy as she feels she would benefit from discharging home. She is currently unsafe to ambulate per therapy, would require 24 hour care. If patient insists on discharge would need to sign out against medical advice unless 24 hour care has been arranged and confirmed. Continue pain control with p.r.n. Tylenol, oxycodone. Eliquis for DVT prophylaxis. Follow-up with Orthopedic surgery as an outpatient. Assessment & Plan (09/11/2024 2:39 PM SOIL CONSERVATION AIDE): Patient has been participating in therapy, remaining weight-bearing as tolerated with abduction brace in place. Abduction pillow in place while in bed. Continue Eliquis for DVT prophylaxis. Pain is adequately controlled, continue p.r.n. Tylenol, oxycodone 7.5 mg q.6 hours p.r.n.. Okay to remove joanna on or after September 20. Follow up with Orthopedic surgery Assessment & Plan (09/04/2024 1:28 PM SOIL CONSERVATION AIDE): - ortho consult - planning OR 08/30 for L hip hemiarthroplasty - CT pelvis wo prior to OR - NWB LLE 08/30 OR with Ortho 09/01: Persistently tachycardic. Plan: Follow up with Ortho on 10/08 at 10am outpatient, Abduction pillow while in bed, Abduction Brace when out of bed, but weightbearing as tolerated, Post op DVT prophylaxis Eliquis 2.5 mg oral 2 times a day x 30 days, Pathology: OR path pending Will be removed 3 weeks after surgical date. Please include on discharge orders if patient is going to a facility. Seizure 04/23/2024 Centrilobular emphysema 10/31/2023 Assessment & Plan (09/24/2024 11:48 AM SOIL CONSERVATION AIDE): Pt reports that she does not always use her Anoro routinely. Encouraged to use on regular basis Assessment & Plan (09/18/2024 11:36 AM SOIL CONSERVATION AIDE): Pulmonary status stable, no oxygen required. No bronchospasm. Continue Anoro Ellipta 1 puff daily, Astelin Perennial allergic rhinitis 10/31/2023 Assessment & Plan (09/24/2024 11:42 AM SOIL CONSERVATION AIDE): Continue nasal spray Tobacco abuse, in remission 10/31/2023 Coronary artery calcification 04/21/2023 Intermittent claudication 04/21/2023 Lower leg edema 04/21/2023 Primary malignant neoplasm of lung 02/24/2023 Assessment & Plan (08/31/2024 10:34 AM SOIL CONSERVATION AIDE): SEE BRAIN METS PAD (peripheral artery disease) 02/18/2023 Cigarette smoker 02/09/2023 Sequela of cerebrovascular accident 01/27/2023 Transient ischemic attack 01/21/2023 Hyperlipidemia, unspecified 10/14/2022 Assessment & Plan (09/24/2024 11:42 AM SOIL CONSERVATION AIDE): Stable, resume crestor Assessment & Plan (08/29/2024 8:04 PM SOIL CONSERVATION AIDE): - Continue CARBONATING STONE CLEANER rosuvastatin 10 mg nightly Essential (primary) hypertension 10/14/2022 Syncope and collapse 10/14/2022 Weakness 10/14/2022 Aortic atherosclerosis 01/04/2022 Difficulty with speech 07/19/2021 Imbalance 05/26/2021 Radiotherapy follow-up examination 03/25/2021 Chest pain 10/13/2020 Personal history of radiation therapy 09/24/2020 History of lump of right breast 07/28/2020 Breast mass, right 07/24/2020 Malignant neoplasm of urinary bladder 06/03/2020 Overview (06/03/2020): Added automatically from request for surgery [id number] Adenocarcinoma of lung, stage 4 04/10/2020 Amnesia/memory disorder, 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 DDX includes orthostatic, arrhthymias, Trileptal, and hyponatremia is very likely contributing Check orthostatics---> neg Monitor on tele---> neg for events bMRI improved with no new lesions so symptoms unlikely related to brain mets Management of hyponatremia as documented else where Suspect AE of Trileptal (timeframe fits well, she was started on it the end of September) --> consult neuro----> DC Trileptal ans resume Keppra at 1 g bid, follow up with nikhil in the clinic, will be set up for an appt by neuro team Assessment & Plan (11/07/2019 10:42 PM SOIL CONSERVATION AIDE): -Etiology not entirely clear. Consider orthostatic hypotension as symptoms typically occur with vision changes, however she does not appear volume depleted by exam or history. Denies sensation of vertigo. Mild hyponatremia could possibly be contributing. Would also consider adverse drug effect 2/2 prednisone, Trileptal, or pembrolizumab. -Check orthostatics -Monitor on tele -bMRI improved with no new lesions so symptoms unlikely related to brain mets Memory impairment 11/05/2019 Assessment & Plan (09/24/2024 11:46 AM SOIL CONSERVATION AIDE): Evaluated by speech therapy who reports a [place] score of 22/25 which suggest that she has within functional limits and at her baseline Assessment & Plan (09/14/2024 2:14 PM SOIL CONSERVATION AIDE): Pt angry and upset. Evaluated by speech therapy who reports a [place] score of 22/25 which suggest that she has within functional limits and at her baseline. 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 intake, tachycardia and bilateral pulmonary infiltrates. Influenza/RSV swab negative, UA with pyuria, CT chest with bilateral pulmonary infiltrates concerning for possible infection versus organizing pneumonia, blood cultures collected in the ED. -Initiated on vancomycin, cefepime and azithromycin > Transitioned to PO Levaquin on D/C, will finish azithromycin today -RVP neg -Urine culture neg -Bood cultures 10/29 NGTD -CTM fever curve and tachycardia Assessment & Plan (10/30/2019 1:32 AM SOIL CONSERVATION AIDE): Presenting with fevers, malaise, fatigue, poor p.o. intake, tachycardia and bilateral pulmonary infiltrates. Influenza/RSV swab negative, UA with pyuria, CT chest with bilateral pulmonary infiltrates concerning for possible infection versus organizing pneumonia, blood cultures collected in the ED. -continue broad-spectrum antibiotics including vancomycin, cefepime and azithromycin pending infectious workup results -follow RVP -follow urine culture and blood cultures -monitor fever curve and tachycardia Pulmonary infiltrates 10/30/2019 Assessment & Plan (11/08/2019 12:08 PM SOIL CONSERVATION AIDE): Noted during prior admission with c/f infection vs organizing PNA. S/p treatment with Levaquin and currently on steroid taper Continue prednisone 50mg (decreased from 60 to 50mg today) with plan to decrease by 10mg Q5 days. Assessment & Plan (11/07/2019 10:40 PM SOIL CONSERVATION AIDE): -Noted during prior admission with c/f infection vs organizing PNA. S/p treatment with Levaquin and currently on steroid taper -Continue prednisone 50mg (decreased from 60 to 50mg today) with plan to decrease by 10mg Q5 days. Assessment & Plan (11/01/2019 12:51 PM SOIL CONSERVATION AIDE): Bilateral pulmonary infiltrates noted on presenting CT chest concerning for infection versus organizing pneumonia/pneumonitis setting of recent initiation of pembrolizumab. Initially required 2LNC to maintain sats >90%. -Flu/RVP neg -Continue broad-spectrum antibiotics as above -Continue Solu-Medrol per Onc recs at 1mg/kg bid > Transitioned to daily 10/31 > Will continue transitioned to PO and D/C home with a taper per onc recs -Has since titrated to RA > CTM Assessment & Plan (10/30/2019 1:25 AM SOIL CONSERVATION AIDE): Bilateral pulmonary infiltrates noted on presenting CT chest concerning for infection versus organizing pneumonia/pneumonitis setting of recent initiation of pembrolizumab. -follow RVP -continue broad-spectrum antibiotics as above -continue Solu-Medrol per Hematology recommendations at 1mg/kg bid -Cont O2 support, per NC to goal spo2>92% Localization-related epilepsy, intractable 10/30 Assessment & Plan (09/24/2024 11:45 AM SOIL CONSERVATION AIDE): Stable, continue keppra Assessment & Plan (09/18/2024 11:34 AM SOIL CONSERVATION AIDE): No recent seizure activity, continue Keppra 250 mg b.i.d. Assessment & Plan (09/14/2024 2:13 PM SOIL CONSERVATION AIDE): No current seizure activity, continue Keppra b.i.d. Assessment & Plan (09/11/2024 2:40 PM SOIL CONSERVATION AIDE): No recent seizure activity that patient is aware of. Continue Keppra 250 mg b.i.d. Assessment & Plan (08/31/2024 10:20 AM SOIL CONSERVATION AIDE): - Per chart review, pt has had spells since 2019 (time of surgical resection) including single event of generalized shaking without loss of consciousness, and recurrent events of sudden speech arrest lasting 5 minutes. She has fluency problems and difficulty printing/writing since her craniotomy. - continue CARBONATING STONE CLEANER Keppra 250 mg BID Scheduled to follow up with Oncology with MRI and CT on 10/18/2024 Assessment & Plan (11/08/2019 12:08 PM SOIL CONSERVATION AIDE): In setting of brain mets. Pt reports no recent seizures. Continue Trileptal 300 BID Assessment & Plan (11/07/2019 10:35 PM SOIL CONSERVATION AIDE): -In setting of brain mets. Pt reports no recent seizures. -Continue Trileptal 300 BID Assessment & Plan (10/31/2019 8:29 AM SOIL CONSERVATION AIDE): Continue Trileptal 300 mg b.i.d. as above. Seizure precautions. Assessment & Plan (10/30/2019 1:30 AM SOIL CONSERVATION AIDE): Continue Trileptal 300 mg b.i.d. as above. Seizure precautions. Hyponatremia 10/30/2019 Assessment & Plan (09/24/2024 11:42 AM SOIL CONSERVATION AIDE): Resolved. Na currently 135 Assessment & Plan (09/11/2024 2:32 PM SOIL CONSERVATION AIDE): Sodium level labile, improved currently from 130-136. We will follow-up next week Assessment & Plan (11/08/2019 1:23 PM SOIL CONSERVATION AIDE): Likely 2/2 hypovolemia, improved 129->133 with IVF. Drinks about 60 oz of fluid per day (<2L). Assessment & Plan (11/08/2019 12:09 PM SOIL CONSERVATION AIDE): Mild hyponatremia noted since 10/08/19. Na during prior admission slightly improved with IVF and was 133 upon discharge. Na 129 today with urine Na 46, urine osm 215, serum osm 267. 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 Of note, there was concern for adrenal insufficiency in the [facility] with low random cortisol level and plan for soheila stim test, however patient is on prednisone and cortisol levels and soheila stim test are not useful in this situation. S/p 1L NS in [facility]. Follow up Na. Plan for 2L fluid restriction as treatment for likely SIADH Assessment & Plan (11/07/2019 10:45 PM SOIL CONSERVATION AIDE): -Mild hyponatremia noted since 10/08/19. Na during prior admission slightly improved with IVF and was 133 upon discharge. Na 129 today with urine Na 46, urine osm 215, serum osm 267. 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 Of note, there was concern for adrenal insufficiency in the [facility] with low random cortisol level and plan for soheila stim test, however patient is on prednisone and cortisol levels and soheila stim test are not useful in this situation. -s/p 1L NS in [facility]. Follow up Na. -Plan for 2L fluid restriction as treatment for likely SIADH Assessment & Plan (11/01/2019 12:55 PM SOIL CONSERVATION AIDE): Mild hyponatremia over the past couple of weeks which has been stable. Concern for volume depletion in setting of recent poor p.o. intake versus SIADH from pulmonary cancer. Receiving IV fluids in the ED for sepsis -Na improved to 136 > stable today at 134 -CTM Assessment & Plan (10/30/2019 1:34 AM SOIL CONSERVATION AIDE): Mild hyponatremia over the past couple of weeks which has been stable. Concern for volume depletion in setting of recent poor p.o. intake versus SIADH from pulmonary cancer. -receiving IV fluids in the ED for sepsis, obtain urine electrolytes including osmolality and repeat BMP -monitor sodium closely. Malignant neoplasm of upper lobe of right lung 0 10/15/2019 Cancer Staging:Clinical:Stage IVB(cT1, cN3, cM1c) - Signed by Lucio Leigh MD on 05/06/2020 Assessment & Plan (08/31/2024 10:34 AM SOIL CONSERVATION AIDE): SEE BRAIN METS Assessment & Plan (11/08/2019 1:20 PM SOIL CONSERVATION AIDE): See top of note for onc hx. Recently diagnosed lung adenocarcinoma with multiple brain metastasis and mediastinum and hilar LAD. She is s/p resection of the largest brain metastasis and WBRT and pembro on 10/22. - Continue follow up with Dr. Carranza, no changes to her regimen or therapy inpatient, anticipate discharge soon as her sx are improving. Assessment & Plan (11/08/2019 12:07 PM SOIL CONSERVATION AIDE): Recently diagnosed lung adenocarcinoma with multiple brain metastasis and mediastinum and hilar LN. She is s/p resection of the largest brain metastasis and WBRT completed 10/22. Started on pembrolizumab 10/22. Continue follow up with Dr. Carranza. Assessment & Plan (11/07/2019 10:38 PM SOIL CONSERVATION AIDE): -Recently diagnosed lung adenocarcinoma with multiple brain metastasis and mediastinum and hilar LN. She is s/p resection of the largest brain metastasis and WBRT completed 10/22. Started on pembrolizumab 10/22. -Continue follow up with Dr. Carranza. Assessment & Plan (10/31/2019 8:30 AM SOIL CONSERVATION AIDE): Pulmonary adenocarcinoma with metastatic disease to the brain and mediastinum/neck/hilar. -L parietal mass, s/p resection -Brain mets > symptomatic with confusion and seizures > s/p WBRT 10/22 -Large dz burden in chest; started on single agent pembro 10/22 -Patient is followed by Dr. Choe. -Med onc c/s -management of sepsis and complications of brain meds as noted elsewhere Assessment & Plan (10/30/2019 1:26 AM SOIL CONSERVATION AIDE): Pulmonary adenocarcinoma with metastatic disease to the brain and mediastinum. First dose of pembrolizumab started on 10/22. Patient is followed by Dr. Choe. -medical oncology consult in the morning -management of sepsis and complications of brain meds as above Metastasis to brain 10/15/2019 Assessment & Plan (08/31/2024 10:35 AM SOIL CONSERVATION AIDE): Follow up with Oncology as scheduled 10/18/2024 Assessment & Plan (10/31/2019 10:13 AM SOIL CONSERVATION AIDE): Multiple brain metastasis, some with hemorrhagic component, status post resection of the largest and completion of whole-brain radiation on 10/22. Course complicated by seizures although appears that frequency has improved after radiation. Should have completed Decadron taper prior to admit. -Continue holding chemical prophylaxis and anti-platelet agents -Continue Trileptal 300 b.i.d. for seizures -Continue memantine - was supposed to increase Memantine at completion of radiation to 5mg bid x7 days then 10mg am and 5mg pm x7 days then 10bid x6m. Per the schedule by DRU MORIN, her current schedule is 10mg qam and 5mg qpm. Will continue this regimen in house and transition to 10mg BID at D/C -Seizures and fall precautions Assessment & Plan (10/30/2019 1:31 AM SOIL CONSERVATION AIDE): Multiple brain metastasis, some with hemorrhagic component, status post resection of the largest and completion of whole-brain radiation on 10/22. Course complicated by seizures although appears that frequency has improved after radiation. Should have completed Decadron taper yesterday. -continue holding chemical prophylaxis and anti-platelet agents -continue Trileptal 300 b.i.d. for seizures -continue memantine - was supposed to increase Memantine at completion of radiation to 5mg bid x7 days then 10mg am and 5mg pm x7 days then 10bid x6m. Per the schedule, she should be currently starting 10 mg q.a.m. and 5 mg q.p.m.. -discuss with oncology and radiation oncology in the morning if patient is safe to start DVT prophylaxis from their standpoint -patient unsure of her medications. Nephew will send pictures of her medication list/bottles via iPhone in the morning. -seizures and fall precautions Bladder mass and persistent microsopic hematuria, suspected bladder cancer 10/06/2019 Assessment & Plan (11/08/2019 1:21 PM SOIL CONSERVATION AIDE): Has seen urology who was planning TUR procedure, but wanted to d/w primary onc first. Could not find a note to document such a discussion. Without f/u with urology scheduled. - F/u with primary oncologist to discuss with urologist on resection. Assessment & Plan (11/08/2019 12:06 PM SOIL CONSERVATION AIDE): Prior CT A/P c/f papillar bladder mass suspicious for transitional cell carcinoma. Prior UA with microscopic hematuria. Follow up with urology as outpatient Assessment & Plan (11/07/2019 10:34 PM SOIL CONSERVATION AIDE): -Prior CT A/P c/f papillar bladder mass suspicious for transitional cell carcinoma. Prior UA with microscopic hematuria. -Follow up with urology as outpatient Assessment & Plan (10/31/2019 8:24 AM SOIL CONSERVATION AIDE): Recent CT of the abdomen and pelvis concerning for a papillary bladder mass suspicious for transitional cell carcinoma. UA with microscopic hematuria. Oncology is aware. Patient is supposed to follow- up with urology soon. -outpatient follow Assessment & Plan (10/30/2019 1:23 AM SOIL CONSERVATION AIDE): Recent CT of the abdomen and pelvis concerning for a papillary bladder mass suspicious for transitional cell carcinoma. UA with microscopic hematuria. Oncology is aware. Patient is supposed to follow- up with urology soon. -outpatient follow At risk for venous thromboembolism (VTE) 020 Overview (11/05/2019): Problem added by Discern Expert Rule: [id number]_3 Malignant neoplasm of female breast 05/29/2009 Overview (08/30/2024): ,L breast T2N0,3.2 cm,ER+,RI+,Her2 neg,Lumpectomy,SN,RT AC x 4,Femara begun -2005,L breast T2N0,3.2 cm,ER+,RI+,Her2 neg,Lumpectomy,SN,RT AC x 4,Femara begun ,L breast T2N0,3.2 cm,ER+,RI+,Her2 neg,Lumpectomy,SN,RT AC x 4,Femara begun -2005,L breast T2N0,3.2 cm,ER+,RI+,Her2 neg,Lumpectomy,SN,RT AC x 4,Femara begun ,L breast T2N0,3.2 cm,ER+,RI+,Her2 neg,Lumpectomy,SN,RT AC x 4,Femara begun Current Treatment and Therapy Plans IV MAINTENANCE THERAPY PLAN* Plan Start Date:12/24/2019 Plan Provider:Leonid Carranza MD Linked Problems Bladder massMalignant neopla sm of upper lobe of right lung (HCC)At risk for venous thromboembolism (VTE) Treatment Medications No medications scheduled. Past Treatment and Therapy Plans Oncology Chemotherapy Treatment Plan Name Start Date Discontinue Date Treatment Medications Discontinue Reason Plan Provider Cycles pembrolizumab (C1); pemetrexed / CARBOplatin (C2-5); f/b pemetrexed maintenance (C6+) - 21 day cycles - Non-Small Cell Lung 10/22/19 20 02/29/2024 CARBOplatin (PARAPLATIN) IVPB in 250 mLpembrolizumab (KEYTRUDA) IVPB in 100 mLPEMEtrexed (ALIMTA)PEMEtrexe d (ALIMTA) IVPB ([id number]) Therapy Complete Leonid Mazariegos MD 29 of 32 cycles started Specialty Infusion Treatment Plan Name Start Date Discontinue Date Treatment Medications Discontinue Reason Plan Provider Venous Sampling from IVAD 10/13/2020 01/10/2024 No medications scheduled. Orders Justin Rollins MD Radiation Treatments * Course C2_Mediast_2020 05/20/2020 - 10/06/2020 Treatment Period Energy Fraction Dose Fractions Total Dose Plans Planned RTLUN_MED 05/20/2020 - 10/06/2020 300 15 / 4,500 Reference Points Delivered r lung dpv 05/20/2020 - 10/06/2020 4,500 * Course C1_WB_2020 10/09/2019 - 05/14/2020 Treatment Period Energy Fraction Dose Fractions Total Dose Plans Planned WHOLE BRAIN 10/09/2019 - 05/14/2020 300 10 / 3,000 Reference Points Delivered WB_DPV 10/09/2019 - 05/14/2020 3,000 Lifetime Dose Tracking * Chemical Lifetime Dose Automatic Entry Manual Entr y Fluoro Time 6.075 minutes 2.675 minutes 3.4 minutes Air kerma at the reference point (Ka,r) 132.38 mGy 4 .38 mGy 128 mGy DLP 14,468 mGycm 14,468 mGycm 0 mGycm DAP 7.316 Gy-cm2 0 Gy-cm2 7.316 Gy-cm2 Resolved Problems Problem Noted Date Diagnosed Date Resolved Date Primary adenocarcinoma of lung, right 10/06/2019 10/15/2019 Cancer Staging:Clinical:Stage IVB(cT1c, cN2, pM1c) - Unsigned Intracranial space-occupying lesion 09/20/2019 10/30/2019 Overview (09/20/2019): Added automatically from request for surgery [id number]
--- OUTSIDE RECORDS SUMMARY | 2025-05-31 13:15 | XMS_ITS | Clinical Summary ---
Author Organization [facility] Address [address] [place] [address] Care Team Providers Care [employer] Team Member Name Role Phone Anderson Hartley MD Primary Care Provider [phone] Allergies No known active allergies Medications acetaminophen (TYLENOL) 325 MG tablet Take 1 tablet (325 mg total) by mouth every 6 (six) hours as needed. 06/21/2022 Active ALPRAZolam (XANAX) 0.5 MG tablet Take 1 tablet (0.5 mg total) by mouth nightly as needed. 08/26/2022 Active Azelastine HCl 0.15 % Solution 2 sprays by Nasal route 2 (two) times daily. Active Multiple Vitamin (DAILY VITES) Tab Take 1 tablet by mouth daily. Active ANORO ELLIPTA 62.5-25 MCG/ACT inhaler Inhale 1 puff into the lungs daily. 12/20/2022 Active aspirin EC (ECOTRIN) 81 MG tablet Take 1 tablet (81 mg total) by mouth daily. 30 tablet 02/18/2023 Active rosuvastatin (CRESTOR) 20 MG tablet Take 0.5 tablets (10 mg total) by mouth nightly at bedtime. 90 tablet 03/03/2023 Active Active Problems Problem Noted Date Diagnosed Date Lower leg edema 04/21/2023 Intermittent claudication 04/21/2023 Coronary artery calcification 04/21/2023 PAD (peripheral artery disease) 02/18/2023 TIA (transient ischemic attack) 01/21/2023 Essential (primary) hypertension 10/14/2022 Hyperlipidemia, unspecified 10/14/2022 Syncope and collapse 10/14/2022 Weakness 10/14/2022 Aortic atherosclerosis 01/04/2022 Chest pain 10/13/2020 Dizziness 11/07/2019 Overview (02/18/2023): Last Assessment & Plan: Etiology not entirely clear. DDX includes orthostatic, [...] at 1 g bid, follow up with neuo in the clinic, will be set up for an appt by neuro team Last Assessment & Plan: Etiology not entirely clear. DDX includes orthostatic, [...] at 1 g bid, follow up with neuo in the clinic, will be set up for an appt by neuro team At risk for venous thromboembolism (VTE) 020 Overview (02/18/2023): Problem added by Discern Expert Rule: EBN_VTERISKPROB_3 Problem added by Discern Expert Rule: EBN_VTERISKPROB_3 Family History Medical History Relation Comments Heart Attack Brother 1 Open Heart Father Stroke Mother Relation Status Comments Brother 1 (Age 54) Brother 2 Alive Father (Age 84) Mother (Age 75) Social History Tobacco Use Types Packs/Day Years Used Date Smoking Tobacco: Former Cigarettes Smokeless Tobacco: Never Tobacco Cessation:Counseling Given: Not Answered Alcohol Use Standard Drinks/Week Comments Yes 1 (1 standard drink = 0.6 oz pur e alcohol) Comments Unknown Sex and Gender Information Value Date Recorded Sex Assigned at Not on file Legal Sex Female 2:40 PM CDT Gender Identity Not on file Sexual Orientation Not on file Last Filed Vital Signs Vital Sign Reading Time Taken Comments Blood Pressure 114/84 04/22/2023 9:45 AM CDT Pulse 99 04/22/2023 8:48 AM CDT Temperature - - Respiratory Rate - - Oxygen Saturation 98% 04/22/2023 8:48 AM CDT Inhaled Oxygen Concentration - - Weight 59.4 kg (131 lb) 04/22/2023 8:48 AM CDT Height 160 cm (5' 3) 04/22/2023 8:48 AM CDT Body Mass Index 23.21 04/22/2023 8:48 AM CDT Plan of Treatment Health Maintenance Due Date Last Done Comments ASCVD Statin 1958 Colorectal Cancer Screening Colonoscopy (10 Years) 1958 Hepatitis C 1976 Mammogram Screening 1998 Zoster Vaccines (1 of 2) 2008 RSV Immunization or 60+ Years (1 - Risk 60-74 years 1-dose series) 2018 Pneumococcal Vaccine: 50+ Years (2 of 2 - PCV) 07/14/2022 07/14/2021 Dexa Scan (General) 2023 ASCVD LDL 01/22/2024 01/21/2023 COVID-19 Vaccine (3 - 2024-2 6 season) 2025 12/03/2020, 11/13/2020 DTaP, Tdap and Td Vaccines ( 2 - Td or Tdap) 04/23/2032 04/23/2022 Meningococcal B Vaccine Aged Out No l onger eligible based on patient's age to complete this topic Meningococcal Vaccine Aged Out No joao maverick eligible based on patient's age to complete this topic RSV Immunizations Under 20 Months Aged Out No longer eligible b ased on patient's age to complete this topic Procedures Procedure Name Priority Date/Time Associated Diagnosis Comments LIPID PANEL Routine 01/21/2023 from Last 3 Months or Most Recently Relevant to Health Maintenance Results * LIPID PANEL (01/21/2023) CHOLESTEROL 133 0 - 200 HDL 43 >35 TRIGLYCERIDES 143 0 - 150 LDL (CALCULATED) 63 0 - 100 01/21/2023 us Default History Genericprovider LABORATORY Final Result from Last 3 Months or Most Recently Relevant to Health Maintenance [place] [address] [place] [address] Care Teams [employer] Team Member Relationship Specialty Start Date End Date Anderson Hartley MD [address] [place], [place] [id number] PCP - General FAMILY PRACTICE 01/14/23
--- OUTSIDE RECORDS SUMMARY | 2025-05-31 13:15 | XMS_ITS | Clinical Summary ---
Author Organization [facility] Address [address] [place] [address] Care Team Providers Care Line Haul Driver Name Role Phone Anderson Hartley MD Primary Care Provider [phone] Matt German MD PhD Unavailable [phone] Bhavesh Bhatia MD Unavailable Justin Rollins MD Unavailable [phone] Katherine James MD Unavailable [phone] Ponce Hughes MD Unavailable [phone] Allergies No known active allergies Medications acetaminophen (TYLENOL) 325 mg tabletIndications: Arthralgia, unspecified joint,Metastasis to brain,Left displaced femoral neck fracture (HCC) Take 1 tablet (325 mg total) by mouth every 6 (six) hours as needed for pain 09/08/20 Active Additional Information Patient taking differently: 650 mgoral Every 6 hours PRN, pain,Indications: Pain, Informant: Self, Reported on 05/21/2025 ALPRAZolam (XANAX) 0.5 mg tabletIndications: MARLON (generalized anxiety disorder) Take 1 tablet (0.5 mg total) by mouth nightly as needed for anxiety As needed 09/08/20 24 Active Additional Information Patient taking differently:0.5 mg oral Nightly PRN, anxiety, As needed,Indications: anxiety, Informant: Self, Reported on 05/21/2025 cholecalciferol (VITAMIN D-3) 1,000 unit capsule Take 1 capsule (1,000 Units total) by mouth daily 09/08/20 24 Active Additional Information Patient taking differently:1,000 Units oralEvery morning, Indications: supplement, Informant: Self, Reported on 05/21/2025 rosuvastatin (CRESTOR) 10 mg tabletIndications: Hyperlipidemia, unspecified hyperlipidemia type Take 1 tablet (10 mg total) by mouth nightly 30 tablet 09/24/19 25 Active Additional Information Patient taking differently:10 mg oral Nightly,Indications: hyperlipidemia, Informant: Self, Reported on 05/21/2025 amoxicillin 500 mg capsule 1 tablet/capsule (500 mg total) Pre dental appt 10/17/19 25 Active azelastine (ASTELIN) 137 mcg (0.1 %) nasal spray Administer 1 spray into each nostril 2 (two) times a day Use in each nostril as directed 30 mL 11 01/16/20 25 Active Additional Information Patient taking differently:1 spray each nostril2 times daily PRN, allergies, Use in each nostril as directed,Indications: Perennial Allergic Rhinitis, Informant: Self, Reported on 05/21/2025 sodium chloride-aloe vera spray,non-aerosol Administer 1 spray into each nostril 2 (two) times a day 22 mL 6 01/16/20 25 Active Additional Information Patient taking differently:1 spray each nostril2 times daily PRN, Prescribed but hasn't used , Indications: allergies, Informant: Self, Reported on 05/21/2025 ibuprofen (IBU-200) 200 mg tab/capIndications :Anti-inflammatory ,Pain Take 2 tablet/capsule (400 mg total) by mouth every 8 (eight) hours as needed for pain 11/11/19 25 Active mecobalamin, vitamin B12, (B12 Active) 1,000 mcg tablet,chewableInd ications:Preventio n of Vitamin B12 Deficiency Take 1 tablet by mouth every morning 10/13/19 25 Active collagen, hydrolysate, bovine, (collagen, hydr, bovine,, bulk,) 100 % powderIndications: supplement Take 1 Scoop by mouth every morning Active moxifloxacin (VIGAMOX) 0.5 % ophthalmic solution Administer 1 drop into the left eye 4 (four) times a day Use every 2 hours while awake the day of surgery then 4X/day 03/13/20 25 Active Additional Information Patient taking differently:1 drop left eye 4 times daily, Use every 2 hours while awake the day of surgery then 4X/dayWill take after next eye surgery, Informant: Self, Reported on 05/21/2025 prednisoLONE acetate (PRED FORTE) 1 % ophthalmic suspension Administer 1 drop into the left eye 4 (four) times a day 4 times daily (when you wake up, lunch, dinner, bedtime). 5 mL 03/13/20 25 Active Additional Information Patient taking differently:1 drop left eye 4 times daily, 4 times daily (when you wake up, lunch, dinner, bedtime).,Indications: Severe Ocular Inflammation, post-op, Informant: Self, Reported on 05/21/2025 [place] Saline 0.65 % nasal sprayIndications:D ry Nose,Nasal Congestion Administer 1 spray into each nostril as needed for congestion 03/07/20 25 Active levETIRAcetam (KEPPRA) 250 mg tabletIndications: Metastasis to brain Take 2 tablets (500 mg total) by mouth 2 (two) times a day 360 tablet 3 03/29/20 25 026 Active Additional Information Patient taking differently:500 mg oral 2 times daily,Indications: seizures, Informant: Self, Reported on 05/21/2025 cetirizine (ZyrTEC) 10 mg chewable tablet Take 1 tablet (10 mg total) by mouth daily Active moxifloxacin (VIGAMOX) 0.5 % ophthalmic solution Administer 1 drop into the right eye 4 (four) times a day Use every 2 hours while awake the day of surgery then 4X/day 05/15/20 25 Active prednisoLONE acetate (PRED FORTE) 1 % ophthalmic suspension Administer 1 drop into the right eye 4 (four) times a day 4 times daily (when you wake up, lunch, dinner, bedtime). 5 mL 05/15/20 25 Active acetaZOLAMIDE ER (DIAMOX SEQUAL) 500 mg capsule Take 1 capsule (500 mg total) by mouth 2 (two) times a day for 3 days 6 capsule 05/15/20 25 Active Active Problems Patient Care Coordination No te [...] bag for bag exchange OS then OD. [place] target. OS IOL exchange/possible vitrectomy OD to follow 2 mo apart. IOLM ASC Anemia 09/13/2024 Assessment & Plan (09/24/2024 11:43 AM BANK VAULT CUSTODIAN): Improved, H/H 11.5/35.5 Assessment & Plan (09/14/2024 2:11 PM BANK VAULT CUSTODIAN): Stable, H&H 10.9/34.1. Continue to monitor Discharge planning issues 08/31/2024 Assessment & Plan (09/03/2024 10:03 AM BANK VAULT CUSTODIAN): 08/30 OR with Ortho 08/31 PT/OT evaluation 09/01 PT/OT Recommends SNF 09/03 -current Patient is medically stable for discharge, SW/CM updated. Discharge pending facility bed availability Treatment Plan Note Completed Osteoarthritis of knee 08/30/2024 Pain in limb 08/30/2024 Fall, initial encounter 08/29/2024 Assessment & Plan (08/29/2024 7:59 PM BANK VAULT CUSTODIAN): - unknown if mechanical vs syncopal - reports recent bouts of dizziness - will consider syncopal work up Left displaced femoral neck fracture 08/29/2024 Assessment & Plan (09/24/2024 11:45 AM BANK VAULT CUSTODIAN): S/P ORIF. weight-bearing as tolerated with abduction brace in place. Abduction pillow in place while in bed. Continue Eliquis for DVT prophylaxis through 09/27/24. Pain is adequately controlled, continue p.r.n. Tylenol, oxycodone 7.5 mg q.6 hours p.r.n Pt was felt stable for discharge 09/24/24. Will arrange home health. Follow up as scheduled with orthopedic surgery Assessment & Plan (09/18/2024 11:34 AM BANK VAULT CUSTODIAN): Pain is controlled, continue p.r.n. Tylenol, p.r.n. oxycodone, p.r.n. Flexeril. Continue Eliquis for DVT prophylaxis. Continue to use brace and abduction pillow as ordered. Joanna can come out today Assessment & Plan (09/14/2024 2:13 PM BANK VAULT CUSTODIAN): Patient was extremely frustrated regarding her brace [...] outpatient. Assessment & Plan (09/11/2024 2:39 PM BANK VAULT CUSTODIAN): Patient has been participating in therapy, remaining weight-bearing as tolerated with abduction brace in place. Abduction pillow in place while in bed. Continue Eliquis for DVT prophylaxis. Pain is adequately controlled, continue p.r.n. Tylenol, oxycodone 7.5 mg q.6 hours p.r.n.. Okay to remove joanna on or after September 20. Follow up with Orthopedic surgery Assessment & Plan (09/04/2024 1:28 PM BANK VAULT CUSTODIAN): - ortho consult - planning OR 08/30 [...] 10/31/2023 Assessment & Plan (09/24/2024 11:48 AM BANK VAULT CUSTODIAN): Pt reports that she does not always use her Anoro routinely. Encouraged to use on regular basis Assessment & Plan (09/18/2024 11:36 AM BANK VAULT CUSTODIAN): Pulmonary status stable, no oxygen required. No bronchospasm. Continue Anoro Ellipta 1 puff daily, Astelin Perennial allergic rhinitis 10/31/2023 Assessment & Plan (09/24/2024 11:42 AM BANK VAULT CUSTODIAN): Continue nasal spray Tobacco abuse, in remission 10/31/2023 Coronary artery calcification 04/21/2023 Intermittent claudication 04/21/2023 Lower leg edema 04/21/2023 Primary malignant neoplasm of lung 02/24/2023 Assessment & Plan (08/31/2024 10:34 AM BANK VAULT CUSTODIAN): SEE BRAIN METS PAD (peripheral artery disease) 02/18/2023 Cigarette smoker 02/09/2023 Sequela of cerebrovascular accident 01/27/2023 Transient ischemic attack 01/21/2023 Hyperlipidemia, unspecified 10/14/2022 Assessment & Plan (09/24/2024 11:42 AM BANK VAULT CUSTODIAN): Stable, resume crestor Assessment & Plan (08/29/2024 8:04 PM BANK VAULT CUSTODIAN): - Continue RADIOLOGY PHYSICIAN ASSISTANT rosuvastatin 10 mg nightly Essential (primary) hypertension 10/14/2022 Syncope and collapse 10/14/2022 Weakness 10/14/2022 Aortic atherosclerosis 01/04/2022 Difficulty with speech 07/19/2021 Imbalance 05/26/2021 Radiotherapy follow-up examination 03/25/2021 Chest pain 10/13/2020 Personal history of radiation therapy 09/24/2020 History of lump of right breast 07/28/2020 Breast mass, right 07/24/2020 Malignant neoplasm of urinary bladder 06/03/2020 Overview (06/03/2020): Added automatically from request for surgery [id number] Adenocarcinoma of lung, stage 4 04/10/2020 Amnesia/memory disorder, 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 DDX includes orthostatic, [...] at 1 g bid, follow up with yeimio in the clinic, will be set up for an appt by neuro team Assessment & Plan (11/07/2019 10:42 PM BANK VAULT CUSTODIAN): -Etiology not entirely clear. Consider orthostatic hypotension [...] 11/05/2019 Assessment & Plan (09/24/2024 11:46 AM BANK VAULT CUSTODIAN): Evaluated by speech therapy who reports a [place] score of 22/25 which suggest that she has within functional limits and at her baseline Assessment & Plan (09/14/2024 2:14 PM BANK VAULT CUSTODIAN): Pt angry and upset. Evaluated by speech therapy who reports a [place] score of 22/25 which suggest that she has within functional limits and at her baseline. 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 [...] tachycardia Assessment & Plan (10/30/2019 1:32 AM BANK VAULT CUSTODIAN): Presenting with fevers, malaise, fatigue, poor p.o. [...] 10/30/2019 Assessment & Plan (11/08/2019 12:08 PM BANK VAULT CUSTODIAN): Noted during prior admission with c/f infection vs organizing PNA. S/p treatment with Levaquin and currently on steroid taper Continue prednisone 50mg (decreased from 60 to 50mg today) with plan to decrease by 10mg Q5 days. Assessment & Plan (11/07/2019 10:40 PM BANK VAULT CUSTODIAN): -Noted during prior admission with c/f infection vs organizing PNA. S/p treatment with Levaquin and currently on steroid taper -Continue prednisone 50mg (decreased from 60 to 50mg today) with plan to decrease by 10mg Q5 days. Assessment & Plan (11/01/2019 12:51 PM BANK VAULT CUSTODIAN): Bilateral pulmonary infiltrates noted on presenting CT [...] CTM Assessment & Plan (10/30/2019 1:25 AM BANK VAULT CUSTODIAN): Bilateral pulmonary infiltrates noted on presenting CT chest concerning for infection versus organizing pneumonia/pneumonitis setting of recent initiation of pembrolizumab. -follow RVP -continue broad-spectrum antibiotics as above -continue Solu-Medrol per Hematology recommendations at 1mg/kg bid -Cont O2 support, per NC to goal spo2>92% Localization-related epilepsy, intractable 10/30 Assessment & Plan (09/24/2024 11:45 AM BANK VAULT CUSTODIAN): Stable, continue keppra Assessment & Plan (09/18/2024 11:34 AM BANK VAULT CUSTODIAN): No recent seizure activity, continue Keppra 250 mg b.i.d. Assessment & Plan (09/14/2024 2:13 PM BANK VAULT CUSTODIAN): No current seizure activity, continue Keppra b.i.d. Assessment & Plan (09/11/2024 2:40 PM BANK VAULT CUSTODIAN): No recent seizure activity that patient is aware of. Continue Keppra 250 mg b.i.d. Assessment & Plan (08/31/2024 10:20 AM BANK VAULT CUSTODIAN): - Per chart review, pt has had spells since 2019 (time of surgical resection) including single event of generalized shaking without loss of consciousness, and recurrent events of sudden speech arrest lasting 5 minutes. She has fluency problems and difficulty printing/writing since her craniotomy. - continue RADIOLOGY PHYSICIAN ASSISTANT Keppra 250 mg BID Scheduled to follow up with Oncology with MRI and CT on 10/18/2024 Assessment & Plan (11/08/2019 12:08 PM BANK VAULT CUSTODIAN): In setting of brain mets. Pt reports no recent seizures. Continue Trileptal 300 BID Assessment & Plan (11/07/2019 10:35 PM BANK VAULT CUSTODIAN): -In setting of brain mets. Pt reports no recent seizures. -Continue Trileptal 300 BID Assessment & Plan (10/31/2019 8:29 AM BANK VAULT CUSTODIAN): Continue Trileptal 300 mg b.i.d. as above. Seizure precautions. Assessment & Plan (10/30/2019 1:30 AM BANK VAULT CUSTODIAN): Continue Trileptal 300 mg b.i.d. as above. Seizure precautions. Hyponatremia 10/30/2019 Assessment & Plan (09/24/2024 11:42 AM BANK VAULT CUSTODIAN): Resolved. Na currently 135 Assessment & Plan (09/11/2024 2:32 PM BANK VAULT CUSTODIAN): Sodium level labile, improved currently from 130-136. We will follow-up next week Assessment & Plan (11/08/2019 1:23 PM BANK VAULT CUSTODIAN): Likely 2/2 hypovolemia, improved 129->133 with IVF. Drinks about 60 oz of fluid per day (<2L). Assessment & Plan (11/08/2019 12:09 PM BANK VAULT CUSTODIAN): Mild hyponatremia noted since 10/08/19. Na during prior admission slightly improved with IVF and was 133 upon discharge. Na 129 today with urine Na 46, urine osm 215, serum osm 267. 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 Of note, there was concern for adrenal insufficiency in the [facility] with low random cortisol level and plan for soheila stim test, however patient is on prednisone and cortisol levels and soheila stim test are not useful in this situation. S/p 1L NS in [facility]. Follow up Na. Plan for 2L fluid restriction as treatment for likely SIADH Assessment & Plan (11/07/2019 10:45 PM BANK VAULT CUSTODIAN): -Mild hyponatremia noted since 10/08/19. Na during prior admission slightly improved with IVF and was 133 upon discharge. Na 129 today with urine Na 46, urine osm 215, serum osm 267. 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 Of note, there was concern for adrenal insufficiency in the [facility] with low random cortisol level and plan for soheila stim test, however patient is on prednisone and cortisol levels and soheila stim test are not useful in this situation. -s/p 1L NS in [facility]. Follow up Na. -Plan for 2L fluid restriction as treatment for likely SIADH Assessment & Plan (11/01/2019 12:55 PM BANK VAULT CUSTODIAN): Mild hyponatremia over the past couple of weeks which has been stable. Concern for volume depletion in setting of recent poor p.o. intake versus SIADH from pulmonary cancer. Receiving IV fluids in the ED for sepsis -Na improved to 136 > stable today at 134 -CTM Assessment & Plan (10/30/2019 1:34 AM BANK VAULT CUSTODIAN): Mild hyponatremia over the past couple of [...] 05/06/2020 Assessment & Plan (08/31/2024 10:34 AM BANK VAULT CUSTODIAN): SEE BRAIN METS Assessment & Plan (11/08/2019 1:20 PM BANK VAULT CUSTODIAN): See top of note for onc hx. [...] improving. Assessment & Plan (11/08/2019 12:07 PM BANK VAULT CUSTODIAN): Recently diagnosed lung adenocarcinoma with multiple brain metastasis and mediastinum and hilar LN. She is s/p resection of the largest brain metastasis and WBRT completed 10/22. Started on pembrolizumab 10/22. Continue follow up with Dr. Carranza. Assessment & Plan (11/07/2019 10:38 PM BANK VAULT CUSTODIAN): -Recently diagnosed lung adenocarcinoma with multiple brain metastasis and mediastinum and hilar LN. She is s/p resection of the largest brain metastasis and WBRT completed 10/22. Started on pembrolizumab 10/22. -Continue follow up with Dr. Carranza. 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 First dose of pembrolizumab started on 10/22. Patient is followed by Dr. Choe. -medical oncology consult in the morning -management of sepsis and complications of brain meds as above Metastasis to brain 10/15/2019 Assessment & Plan (08/31/2024 10:35 AM BANK VAULT CUSTODIAN): Follow up with Oncology as scheduled 10/18/2024 Assessment & Plan (10/31/2019 10:13 AM BANK VAULT CUSTODIAN): Multiple brain metastasis, some with hemorrhagic component, [...] 10bid x6m. Per the schedule by DRU RN, her current schedule is 10mg qam and 5mg qpm. Will continue this regimen in house and transition to 10mg BID at D/C -Seizures and fall precautions Assessment & Plan (10/30/2019 1:31 AM BANK VAULT CUSTODIAN): Multiple brain metastasis, some with hemorrhagic component, [...] 10/06/2019 Assessment & Plan (11/08/2019 1:21 PM BANK VAULT CUSTODIAN): Has seen urology who was planning TUR procedure, but wanted to d/w primary onc first. Could not find a note to document such a discussion. Without f/u with urology scheduled. - F/u with primary oncologist to discuss with urologist on resection. Assessment & Plan (11/08/2019 12:06 PM BANK VAULT CUSTODIAN): Prior CT A/P c/f papillar bladder mass suspicious for transitional cell carcinoma. Prior UA with microscopic hematuria. Follow up with urology as outpatient Assessment & Plan (11/07/2019 10:34 PM BANK VAULT CUSTODIAN): -Prior CT A/P c/f papillar bladder mass suspicious for transitional cell carcinoma. Prior UA with microscopic hematuria. -Follow up with urology as outpatient Assessment & Plan (10/31/2019 8:24 AM BANK VAULT CUSTODIAN): Recent CT of the abdomen and pelvis concerning for a papillary bladder mass suspicious for transitional cell carcinoma. UA with microscopic hematuria. Oncology is aware. Patient is supposed to follow- up with urology soon. -outpatient follow Assessment & Plan (10/30/2019 1:23 AM BANK VAULT CUSTODIAN): Recent CT of the abdomen and pelvis concerning for a papillary bladder mass suspicious for transitional cell carcinoma. UA with microscopic hematuria. Oncology is aware. Patient is supposed to follow- up with urology soon. -outpatient follow At risk for venous thromboembolism (VTE) 020 Overview (11/05/2019): Problem added by Discern Expert Rule: [id number]_3 Malignant neoplasm of female breast 05/29/2009 Overview (08/30/2024): ,L breast T2N0,3.2 cm,ER+,AL+,Her2 neg,Lumpectomy,SN,RT AC x 4,Femara begun ,L breast T2N0,3.2 cm,ER+,AL+,Her2 neg,Lumpectomy,SN,RT AC x 4,Femara begun ,L breast T2N0,3.2 cm,ER+,AL+,Her2 neg,Lumpectomy,SN,RT AC x 4,Femara begun ,L breast T2N0,3.2 cm,ER+,AL+,Her2 neg,Lumpectomy,SN,RT AC x 4,Femara begun ,L breast T2N0,3.2 cm,ER+,AL+,Her2 neg,Lumpectomy,SN,RT AC x 4,Femara begun Resolved Problems Problem Noted Date Diagnosed Date Resolved Date Primary adenocarcinoma of lung, right 10/06/2019 10/15/2019 Cancer Staging:Clinical:Stage IVB(cT1c, cN2, pM1c) - Unsigned Intracranial space-occupying lesion 09/20/2019 10/30/2019 Overview (09/20/2019): Added automatically from request for surgery [id number] Encounters Date Type Department Care Team Description 05/30/2025 Documentation [facility] Medicine Oncology [address] [place] [address] Radha Zacarias CMA 05/23/2025 Telephone [facility] Medicine Oncology [facility] [place] [address] Cecilia Thomas RN 05/22/2025 Documentation [facility] Medicine Oncology [address] [place] [address] Radha Zacarias CMA 05/21/2025 9:00 AM CDT Office Visit [facility] Medicine Ophthalmology 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 (Primary Dx) 05/16/2025 8:30 AM CDT Office Visit [facility] Medicine Ophthalmology [address] [facility] [place] [phone] Emanuel Lovett MD Mechanical complication due to ocular lens prosthesis, initial encounter (Primary Dx) 05/15/2025 8:30 AM CDT - 05/15/2025 9:45 AM CDT Surgery [facility] ([facility]) [address] [place] [id number] Dhiraj Peres MD EXCHANGE INTRAOCULAR LENS [[id number] (CPT )] 05/15/2025 8:25 AM CDT Anesthesia Event [facility] ([facility]) [address] [place] [id number] Chuy Salazar MD Powers, Julia Jeanette, ASIA 05/15/2025 6:30 AM CDT - 05/15/2025 10:09 AM CDT Hospital Encounter [facility] ([facility]) [address] [place] [id number] Dhiraj Peres MD Mechanical complication due to ocular lens prosthesis, initial encounter [T85.29XA] (Primary Dx); Retained lens material following cataract surgery, right eye [H59.021] Discharge Disposition: Discharge to home or self care 04/17/2025 Telephone [facility] Medicine Oncology [facility] [address] [place] [phone] Cecilia Thomas, PATIENCE 04/11/2025 Telephone [facility] Radiation Oncology [address] [place] [address] [place] [address] Argelia De Leon MA 04/11/2025 Orders Only [facility] Medicine Oncology [address] [facility] [address] [place] [phone] Katherine James MD Primary cancer of right upper lobe of lung (HCC) (Primary Dx) 04/04/2025 Orders Only [facility] Radiation Oncology [address] [facility] [place] [address] Mariela Mcallister NP Metastasis to brain (HCC) (Primary Dx) 03/21/2025 9:45 AM CDT Office Visit [facility] Ophthalmology [address], [address] [place] [phone] Dhiraj Peres MD Pseudophakia of left eye (Primary Dx); Mechanical complication due to ocular lens prosthesis, initial encounter; Other mechanical complication of intraocular lens, initial encounter 03/14/2025 9:45 AM CDT Office Visit [facility] Ophthalmology [address] [place] [phone] Dhiraj Peres MD Mechanical complication due to ocular lens prosthesis, initial encounter (Primary Dx) 03/13/2025 8:30 AM CDT - 03/13/2025 9:45 AM CDT Surgery [facility] ([facility]) [address] [place] [id number] Dhiraj Peres MD EXCHANGE INTRAOCULAR LENS [[id number] (CPT )] 03/13/2025 8:28 AM CDT Anesthesia Event [facility] ([facility]) [address] [place] [id number] Chuy Salazar MD Brohi, Ashlee Renae, NP 03/13/2025 6:25 AM CDT - 03/13/2025 9:56 AM CDT Hospital Encounter [facility] ([facility]) [address] [place] [id number] Dhiraj Peres MD Mechanical complication due to ocular lens prosthesis, initial encounter [T85.29XA] (Primary Dx) Discharge Disposition: Discharge to home or self care from Last 3 Months Immunizations Immunization Administration Dates Next Due Hep A, Adult 08/07/2017 Influenza, Quadrivalent, Rec ombinant, Egg Free, Preservative Free, Intramuscular 08/11/2018 Influenza, Quadrivalent, Spl it, Preservative Free, Intramuscular 06/04/2020,06/28/2019 Influenza, Trivalent, Cell C ulture-based MDCK, Preservative Free, Antibiotic Free, Intramuscular 06/09/2022 Influenza, Trivalent, IM (MDV) 06/02/2021 Influenza, Unspecified 06/13/2023,06/12/2019 PPD TEST 09/15/2024,09/06/2024 Pfizer SARS-CoV-2 Monovalent Vaccination (12+ Yrs) PURPLE 12/03/2020,11/13/2020 Pneumococcal Polysaccharide PPV23 07/14/2021 Sars-CoV-2, Unspecified 12/03/2020 Tdap 04/23/2022 Surgical History Surgery Date Site/Laterality Comments SENTINEL LYMPH NODE BIOPSY 09/12/2006 - 09/11/2007 Left local with IV sedation BREAST LUMPECTOMY 09/12/2006 - 09/11/2007 Left COLONOSCOPY 09/12/2016 - 09/11/2017 TONSILLECTOMY as a child PORT PLACEMENT CHEST >5 YEARS 01/14/2020 N/A CARDIAC CATHETERIZATION 10/13/2020 - 11/09/2020 Left CYSTOSCOPY 06/2020, 07/2020 blue light-transuretheral resection bladder tumor BREAST BIOPSY 09/12/2006 - 09/11/2007 Left BLADDER SURGERY 2020 CRANIOTOMY 09/21/2019 CATARACT EXTRACTION 09/12/2021 - 09/11/2022 Bilateral MATILDEOL-Dr. Ponce Hughes HIP ARTHROPLASTY 08/30/2024 Left INTRAOCULAR LENS EXCHANGE 03/13/2025 Eye/Left Procedure: EXCHANGE INTRAOCULAR LENS; Surgeon: Dhiraj Peres MD; Location: [facility] CAM OR POD 4; Service: Ophthalmology; Laterality: Left; Medical devices from this surgery are in the Medical Devices section. INTRAOCULAR LENS EXCHANGE 05/15/2025 Eye/Right Procedure: EXCHANGE INTRAOCULAR LENS; Surgeon: Dhiraj Peres MD; Location: [facility] CAM OR POD 4; Service: Ophthalmology; Laterality: Right; Medical devices from this surgery are in the Medical Devices section. Medical History Medical History Date Comments Hypercholesteremia Cancer (HCC) 2019 after craniotom y & chemo 3 treatments w cistplatin&carboplatin & other drug breast Lung cancer (HCC) Shortness of breath Cough Constipation Anxiety Depression Emphysema of lung Seizures (HCC) summer 2021 only sym pton loss of speech last seizure september 2019 History of chemotherapy 2019 after crani otomy & chemo 3 treatments w cistplatin&carboplatin & other drug04/2020 left breast History of radiation therapy 05/2020 lef t breast Bladder cancer (HCC) Amnesia memory disorder Anomic aphasia Brain metastasis Abnormal Pap smear of cervix 12/09/2021 + A CUS + HPV Breast cancer (HCC) left Diabetes mellitus (HCC) prediabetes for 10-20 yrs hasn't progressed to diabetes Sleep difficulties Dizziness 2019 after craniotom y & chemo 3 treatments w cistplatin&carboplatin & other drugs r HL (hearing loss) 2 years ago Dental disease pressure from invisa ligner, grind teeth atbnight Speech impairment unpredictable troubl e getting words out Family History Medical History Relation Name Comments Diabetes Brother 1 d Heart attack Brother 1 d Sudden Cardiac Brother 1 d Diabetes Brother 2 kristopher Heart attack Brother 2 kristopher Heart disease Brother 2 kristopher Bladder Cancer Father rikki Cancer Father rikki Coronary artery disease Father rikki Diabetes Father rikki Heart attack Father rikki Heart disease Father rikki CABG Cancer Father's Brother edward Diabetes Mother joseph Heart disease Mother joseph Stroke Mother josehp Schizophrenia Sister 1 Mental illness Sister 2 gerald Alcohol abuse Sister 3 scott Mental illness Sister 3 scott Alzheimer's disease Neg Hx Anesthesia problems Neg Hx Breast cancer Neg Hx Colon cancer Neg Hx Dementia Neg Hx Ovarian cancer Neg Hx Pancreatic cancer Neg Hx Prostate cancer Neg Hx Uterine cancer Neg Hx Relation Name Status Comments Brother 1 d of NC age 55 Brother 2 kristopher Alive Father rikki Father's Brother edward Alive Mother joseph CVA age 62 Sister 1 Sister 2 gerald Alive Sister 3 scott Alive Social History Tobacco Use Types Packs/Day Years Used Date Smoking Tobacco: Former Cigarettes 0.8 35 1 972 - 2007 Smokeless Tobacco: Never Tobacco Cessation:Counseling Given: Not Answered Alcohol Use Standard Drinks/Week Comments Not Currently 0 (1 standard drink = 0.6 oz pur e alcohol) socially AUDIT-C Answer Date Recorded Q1: How often do you have a drink containing alcohol? Monthly or less 05/01/2025 Q2: How many drinks containi ng alcohol do you have on a typical day when you are drinking? Patient does not drink Q3: How often do you have si x or more drinks on one occasion? Never 05/01/2025 Personal Safety Answer Date Recorded Have you ever been in or are you currently in a harmful physical or emotional relationship or is someone making you feel afraid or unsafe? 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 on file Not on file Not on file Obstetrics History Para Term AB IAB SAB Ectopic Multiple Livin g Live Births 0 0 0 0 0 0 0 0 0 0 0 Last Filed Vital Signs Vital Sign Reading Time Taken Comments Blood Pressure 122/76 05/15/2025 9:20 AM CDT Pulse 87 05/15/2025 9:20 AM CDT Temperature 36 C (96.8 F) 05/15/2025 9:05 AM CDT Respiratory Rate 17 05/15/2025 9:20 AM CDT Oxygen Saturation 97% 05/15/2025 9:20 AM CDT Inhaled Oxygen Concentration - - Weight 54.9 kg (121 lb) 05/15/2025 7:05 AM CDT Height 157.5 cm (5' 2) 05/15/2025 7:05 AM CDT Body Mass Index 22.13 05/15/2025 7:05 AM CDT Plan of Treatment Health Maintenance Due Date Last Done Comments Colon Cancer Screening-Colonoscopy 1960 Depression Screening 1960 Hepatitis C Screening 1960 Hepatitis B Screening 1976 Zoster Vaccine (1 of 2) 1977 Osteoporosis Screening-Bone Density Scan 03/22/2014 03/22/2012, 03/22/2012 Pneumococcal vaccine 65+ (2 of 2 - PCV) 07/14/2022 07/14/2021 Well Visit 65+ 2023 12/09/2021 Breast Cancer Screening-Mammogram 05/06/2024 05/06/2023, 05/06/2023, 02/23/2022, Additional history exists Covid-19 Vaccine (4 - 2024-2 6 season) 2025 12/03/2020, 12/03/2020, 11/13/2020 Influenza Vaccine (#1) 2025 , 06/13/2023, 06/09/2022, Additional history exists Fall Risk Assessment 05/15/2026 05/15/2025, 10/18/19 DTaP/Tdap/Td Vaccine (2 - Td or Tdap) 04/23/2032 04/23/2022 Cervical Cancer Screening Discontinued 12/09/2021 Medical Devices Implanted Type Area Chemical Sprayer Device Identifier Shelf Expiration Date Model / Serial / Lot [employer] Lens Iol 21d Envista Hydrophobic Acrylic Strl [id number] - [id number] - [id number] Implanted:Qty: 1 on 03/13/2025 by Dhiraj Peres MD at [facility] Lens Left: Eye [employer] [id number] 11/10/2027 [id number] / [id number] / [id number] [employer] Lens Iol 20.5d Envista Hydrophobic Acrylic Strl [id number] - S0 - [id number] Implanted:Qty: 1 on 05/15/2025 by Dhiraj Peres MD at [facility] Lens Right : Eye [employer] 12/31/2027 [id number] / [id number] / [id number] [place] Craniomaxillofacial [id number] [place] Neuro 3 1.5mm 4mm Self Drill Axial Stability Screw Bone Latex Free - [id number] Implanted:Qty: 11 on 09/21/2019 by Matt German MD PhD at [facility] [employer] Craniomaxillofacial [id number] / / Robyn Craniomaxillofacial [id number] [place] Neuro Iii 16mmx.4mm 2 Hole Low Profile Bar - [id number] Implanted:Qty: 1 on 09/21/2019 by Matt German MD PhD at [facility] [employer] Craniomaxillofacial [id number] / / [place] Craniomaxillofacial [id number] [place] Neuro Iii 20mm Low Profile Tab Cover [place] Hole - [id number] Implanted:Qty: 2 on 09/21/2019 by Matt German MD PhD at [facility] Robyn Craniomaxillofacial [id number] / / Ang[employer] [id number] Xcela 8fr 1.6mm 1 Lumen Low Profile Power Injectable Fill Suture - [id number] Implanted:Qty: 1 on 01/14/2020 at [facility] Angio Dynamics 09/30/2024 [id number] / / [id number] Robyn [employer] Simplex P Full Dose Radiopaque Preblend Cement Bone Tobramycin 6197-9- - [id number] Implanted:Qty: 1 on 08/30/2024 by Irma Bergeron MD at [facility] Left: Hip [employer] [id number] / / [employer] Simplex P Full Dose Radiopaque Preblend Cement Bone Tobramycin 6197-9 - [id number] Implanted:Qty: 1 on 08/30/2024 by Irma Bergeron MD at [facility] Left: Hip [employer] [id number] / / Depuy Orthopaedics Inc Self-Centering 45mm 28mm Hip Femur Head Bipolar Sterile Poon [id number] - [id number] Implanted:Qty: 1 on 08/30/2024 by Irma Bergeron MD at [facility] Left: Hip [employer]uy Orthopaed[employer] Inc [id number] / / Depuy Orthopaedics Inc Articul/Jesus Alberto 28mm Skirt Hip +15.5mm /14 Standard Taper Head Latex Free [id number] - [id number] Implanted:Qty: 1 on 08/30/2024 by Irma Bergeron MD at [facility] Left: Hip Depuy Orthopaedics Inc [id number] 03/11/2027 [id number] / / [id number] Bautista & Nephew/Richco/Ortho Prep-Im Plug [place] Sponge Suction Hip Kit Thr Latex Free [id number] - [id number] Implanted:Qty: 1 on 08/30/2024 by Irma Bergeron MD at [facility] Left: Hip Bautista [employer] Nephew/Rich[employer]/Ortho [id number] / / Depuy Orthopaedics Inc Cementralizer 8.5mm Cemented Hip Femur Centralizer Stem Pmma Latex Free 1376-46-000 - [id number] Implanted:Qty: 1 on 08/30/2024 by Irma Bergeron MD at [facility] Left: Hip Depuy Orthopaedics Inc [id number] / / Depuy Orthopaedics Inc [place] 108mm Cemented Hip 3 /14 High Offset Taper Stem Femoral [id number] - [id number] Implanted:Qty: 1 on 08/30/2024 by Irma Bergeron MD at [facility] Left: Hip Depuy Orthopaedics Inc [id number] / / Depuy Orthopa[employer] Inc Cementralizer 8.5mm Cemented Hip Femur Centralizer Stem Pmma Latex Free 1376-46-000 - [id number] Implanted:Qty: 1 on 08/30/2024 by Irma Bergeron MD at [facility] Left: Hip Depuy Orthopaedics Inc [id number] / / Depuy Orthopaed[employer] Inc [place] 108mm Cemented Hip 3 /14 High Offset Taper Stem Femoral [id number] - [id number] Implanted:Qty: 1 on 08/30/2024 by Irma Bergeron MD at [facility] Left: Hip [employer]uy Orthopaed[employer] Inc [id number] 03/11/2028 [id number] / / [id number] Procedures Procedure Name Priority Date/Time Associated Diagnosis Comments AL EXCHANGE INTRAOCULAR LENS 05/15/2025 8:28 AM CDT Mechanical complication due to ocular lens prosthesis, initial encounter Vitreous prolapse of right eye Case Notes 05/10 @1130 LINE UP ADJUSTED PER JEFF VIA CASE MSG (CJM) IOL CALCULATION 2ND EYE 36032 - OD - RIGHT EYE Routine 03/21/2025 9:45 AM CDT Mechanical complication due to ocular lens prosthesis, initial encounter Other mechanical complication of intraocular lens, initial encounter AL EXCHANGE INTRAOCULAR LENS 03/13/2025 8:28 AM CDT Mechanical complication due to ocular lens prosthesis, initial encounter POCT GLUCOSE DEVICE Routine 03/13/2025 7:54 AM CDT SCREENING MAMMOGRAM BILATERAL W JUAN JOSE Schedule Routine, Read Routine (OP Routine) 02/23/2022 10:33 AM CDT Encounter for screening mammogram for malignant neoplasm of breast PAP AND HIGH RISK HPV, REFLEX TO GENOTYPING Routine 12/09/2021 10:50 AM CDT Well woman exam from Last 3 Months or Most Recently Relevant to Health Maintenance Results * IOL Calculation 2nd Eye 94472 - OD - Right Eye (03/21/2025 9:45 AM CDT) Anatomical Region Laterality Modality Head Ophthalmic Axial Measurements Narrative 05/02/2025 9:38 AM CDT Scanned in IOL selected off IOLM us Dhiraj Peres MD OPHTH ULTRASOUND Final Result * POCT glucose (03/13/2025 7:54 AM CDT) Glucose, POC 105 70 - 199 mg/dL Blood 03/13/2025 7:54 AM CDT 03/13/2025 7:54 AM CDT us Dhiraj Peres MD LAB POCT ORDERABLES - DEVICE Final Result [facility] Department [place] [address] * Screening Mammogram Bilateral W Juan Jose (02/23/2022 10:33 AM CDT) Anatomical Region Laterality Modality Breast Bilateral Mammography Impressions 02/23/2022 10:50 AM CDT BI-RADS ATLAS category (overall): 2 - Benign There is no mammographic evidence of malignancy. A 1 year screening mammogram is recommended. The patient has been or will be contacted. We recommend annual screening mammography for women at average risk of breast cancer beginning at age 40, based on guidelines of the [employer] (ACR Practice Parameter for the Performance of Screening and Diagnostic Mammography) and [employer] Obstetric[employer] Gynec[employer]. For women with and elevated risk of breast cancer, please refer to the ACR Practice Parameter for specific screening recommendations. The patient will be entered into a reminder system with a target due date of 1 year for her next screening exam. Narrative 02/23/2022 10:50 AM CDT Screening Mammogram Bilateral W Juan Jose: 02/23/22 The study was acquired using full field digital technology and interpreted from soft copy. 2D digital mammographic views, as well as 3D digital tomosynthesis were performed in the CC and MLO projections. CLINICAL: Encounter for screening mammogram for malignant neoplasm of breast. Medical history includes breast cancer, chemotherapy, and radiation therapy. History of breast cancer in Neg Hx. COMPARISONS: 07/24/2020 Diagnostic Mammogram Bilateral W Juan Jose 07/24/2020 Breast Imaging Outside Reference 07/24/2020 Breast Imaging Outside Reference 07/24/2020 Breast Imaging Outside Reference 07/24/2020 Breast Imaging Outside Reference 07/24/2020 US Breast Right Limited BREAST TISSUE: The breasts are heterogeneously dense, which may obscure small masses. FINDINGS: Unchanged benign mass in the central outer right breast, consistent with known cyst. There are unchanged benign microcalcifications in both breasts. There are stable post operative changes in the left breast. There is no new suspicious finding in either breast on mammogram. us Chrissy Heller MD IMG MAMMO PROCEDURES Final Result * (ABNORMAL) Pap and High Risk HPV, reflex to Genotyping (12/09/2021 10:50 AM CDT) Thin prep (Pap test) 12/09/2021 10:50 AM CDT 12/10/2021 10:50 AM CDT Narrative PATHOLOGY [facility] - 12/15/2021 2:41 PM CDT [facility] Department of Pathology [address] [place] [id number] Final Report with Addendum Note to Patients: This report may contain a detailed description of human tissue sent by a health care provider to the laboratory for pathologic evaluation. The content of this report is essential for diagnosis and may provide important critical findings. This information may be unfamiliar to patients to review without a medical professional present. It is advised that the patient review this report in the presence of a health care provider who can answer questions and explain the details. Patient Name: LEANN NEWMAN Address: [address] [place] [address] Gender: F : 1960 (Age: 61) Service: Laboratory Location: N : [id number] [facility] #: [id number] Patient Type: [facility] SPECIMEN Taken: 12/09/2021 Received: 12/10/2021 Accessioned:: 12/11/2021 Reported: 12/15/2021 Physician(s): Chrissy Heller M.D. [facility] Diagnosis: Source of Specimen: SCREENING THIN PREP IMAGED PAP w/ HPV Specimen Adequacy: - Specimen satisfactory for interpretation; indeterminate endocervical component due to marked atrophy General Category: - Epithelial cell abnormality Interpretation/Results: - Atypical squamous cells of undetermined significance - Atrophic smear pattern MARIO Sinclair(ASCP) Jewels Leos M.D. Report Electronically Reviewed and Signed Out By Jewels Leos M.D. 12/15/2021 14:41:04 Addenda: HPV Test Interpretation POSITIVE for one or more of types 16, 18, 31, 33, 35, 39, 45, 51, 52, 56, 58, 59, 66 and 68. These high/intermediate risk HPV types are associated with dysplasia and some cervical cancers. Test performed utilizing Gen-Probe Aptima assay. MARIO Pereira(ASCP) Report Electronically Reviewed and Signed Out By ZOLTAN PereiraASCP) 12/14/2021 11:32:34 Specimen(s) Received: A: SCREENING THIN PREP IMAGED PAP w/ HPV Clinical History: Menstrual History: Post-menopausal The Pap test is a screening test used to aid in the detection of cervical cancer and its precursors. It should not be the sole means by which malignant and premalignant lesions are diagnosed. Both false negative and false positive results may occur. It also has poor sensitivity for the detection of endometrial lesions and should not be used to evaluate suspected endometrial abnormalities. For these reasons it is most important to obtain Pap tests at regular intervals. The performance characteristics of some immunohistochemical stains, fluorescence in-situ hybridization tests and immunophenotyping by flow cytometry cited in this report (if any) were determined by the Surgical Pathology Department at [facility] as part of an ongoing quality control tech raw materials program and in compliance with federally mandated regulations drawn from the Clinical Laboratory Improvement Act of 1988 (CLIA '88). Some of these tests rely on the use of analyte specific reagents and are subject to specific labeling requirements by the US Food and Drug Administration. Such diagnostic tests may only be performed in a facility that is certified by the Department of Health and Human Services as a high complexity laboratory under CLIA '88. The FDA has determined that such clearance or approval is not necessary. This test is used for clinical purposes. It should not be regarded as investigational or for research. Nevertheless, federal rules concerning the medical use of analyte specific reagents require that the following disclaimer be attached to the report: This test was developed and its performance characteristics determined by the Surgical Pathology Department [facility]. It has not been cleared or approved by the U. S. Food and Drug Administration. Chrissy Heller MD LAB CYTOLOGY ORDERABLES Fin al Result PATHOLOGY [facility] from Last 3 Months or Most Recently Relevant to Health Maintenance Insurance [facility] Address: [address] [place], [place] [id number] [employer] MEDICARE [facility] Address: [address] [address] [place] [address] Advance Directives For more information, please contact: [phone] Documents on File Type Date Recorded Patient Hand Bander Expl anation ADVANCE DIRECTIVE 10/21/2020 5:59 AM POWER OF RESPIRATORY CARE PRACTITIONER-MEDICAL ADVANCE DIRECTIVE 10/21/2020 5:59 AM LIVING WILL ADVANCE DIRECTIVE 11/11/2019 10:39 AM Power of Metal Machine Setter-Medical ADVANCE DIRECTIVE 11/11/2019 10:39 AM Beryl Thomas * Full Code (Latest Code Status on File) Date Activated Date Inactivated Comments 08/30/2024 2:06 PM 09/04/2024 11:18 PM * Full Code Date Activated Date Inactivated Comments 08/29/2024 7:50 PM 08/30/2024 2:06 PM * Full Code Date Activated Date Inactivated Comments 04/23/2024 9:31 AM 04/27/2024 7:33 PM * Full Code Date Activated Date Inactivated Comments 10/21/2020 9:15 AM 10/21/2020 5:39 PM * Full Code Date Activated Date Inactivated Comments 01/14/2020 11:40 AM 01/14/2020 6:23 PM Care Teams Line Haul Driver Relationship Specialty Start Date End Date Anderson Hartley MD [address] [address] PCP - General Family Medicine 10/02/19 Matt German MD PhD [address] [address] Referring Physician Neurosurgery 10/04/19 Bhavesh Bhatia MD [address] [facility] [address] [place] [address] Radiation Oncologist Radiation Oncology 05/07/20 Justin Rollins MD [address] [place] [address] Consulting Physician Cardiology 12/29/20 Katherine James MD [address] [facility] [address] [place] [address] Medical Oncologist/Detective Investigator Hematology and Oncology 12/21/23 [place] [address] [place] [address] Referring Physician Ophthalmology 01/31/25
--- OUTSIDE RECORDS SUMMARY | 2025-05-31 13:15 | XMS_ITS | Encounter Summary ---
Author Organization [facility] Address [address] [place] [address] Care Team Providers Care Skin Washer Name Role Phone Anderson Hartley MD Primary Care Provider [phone] Encounter Details Date Type Department Care Team (Late st Contact Info) Description 05/24/2023 Navitell Message Enc Candler Cardiovascular-O'Fall on [facility], [address] [place] [address] Melony Merida PA-C [address] [facility], [address] [place], [place] [address] Medical Records Social History Tobacco Use Types Packs/Day Years Used Date Smoking Tobacco: Former Cigarettes Smokeless Tobacco: Never Alcohol Use Standard Drinks/Week Comments Yes 1 (1 standard drink = 0.6 oz pur e alcohol) Comments Unknown Sex and Gender Information Value Date Recorded Sex Assigned at Not on file Legal Sex Female 2:40 PM CDT Gender Identity Not on file Sexual Orientation Not on file documented as of this encounter Plan of Treatment Not on file documented as of this encounter Visit Diagnoses Not on filedocumented in this encounter Care Teams Skin Washer Relationship Specialty Start Date End Date Anderson Hartley MD [address] [place] [address] [address] [place] [address] PCP - General FAMILY PRACTICE 01/14/23 documented as of this encounter
--- OUTSIDE RECORDS SUMMARY | 2025-05-31 13:15 | XMS_ITS | Encounter Summary ---
Author Organization [facility] Address [address] [place] [address] Care Team Providers Care Grinder And Plater Name Role Phone Anderson Hartley MD Primary Care Provider [phone] Encounter Details Date Type Department Care Team (Late st Contact Info) Description 03/03/2023 FSI Message Enc Thomas Cardiovascular-O'Fal joao [facility], [facility] [address] [place], [place] [id number] Hammad Marquez MD [facility]. [address] [place], [place] [id number] 20g rosuvastatin Social History Tobacco Use Types Packs/Day Years Used Date Smoking Tobacco: Former Cigarettes Smokeless Tobacco: Never Alcohol Use Standard Drinks/Week Comments Yes 1 (1 standard drink = 0.6 oz pur e alcohol) Comments Unknown Sex and Gender Information Value Date Recorded Sex Assigned at Not on file Legal Sex Female 2:40 PM CDT Gender Identity Not on file Sexual Orientation Not on file COVID-19 Exposure Response Date Recorded In the last 10 days, have yo u been in contact with someone who was confirmed or suspected to have Coronavirus/COVID-19? No / Unsure 02/18/2023 9:40 AM CDT documented as of this encounter Progress Notes * Ashley Clements RN - 03/03/2023 9:48 AM CDT . documented in this encounter Plan of Treatment Not on file documented as of this encounter Visit Diagnoses Not on filedocumented in this encounter Care Teams Grinder And Plater Relationship Specialty Start Date End Date Anderson Hartley MD [address] [place] [address] [address] [place] [address] PCP - General FAMILY PRACTICE 01/14/23 documented as of this encounter
--- OUTSIDE RECORDS SUMMARY | 2025-05-31 13:15 | XMS_ITS | Encounter Summary ---
Author Organization [facility] Address [address] [place] [address] Care Team Providers Care Locomotive Operator Helper Name Role Phone Anderson Hartley MD Primary Care Provider [phone] Encounter Details Date Type Department Care Team (Late st Contact Info) Description 02/22/2023 iwoca Message Enc Stephenson Cardiovascular-O'Fall[place] n [facility], [facility] [address] [place] [id number] Hammad Marquez MD [facility]. [facility] [address] [place], [place] [id number] fish oil Social History Tobacco Use Types Packs/Day Years [...] AM CDT documented as of this encounter Plan of Treatment Not on file documented as of this encounter Visit Diagnoses Not on filedocumented in this encounter Care Teams Locomotive Operator Helper Relationship Specialty Start Date End Date Anderson Hartley MD [address] [place] [address] [address] [place] [address] PCP - General FAMILY PRACTICE 01/14/23 documented as of this encounter
--- OUTSIDE RECORDS SUMMARY | 2025-05-31 13:15 | XMS_ITS | Encounter Summary ---
Author Organization [facility] Address [address] [place] [address] Phone Care Team Providers Care American Board Certified Orthotist Name Role Phone Anderson [place] MD Primary Care Provider [phone] Matt German MD PhD Unavailable Bhavesh Bhatia MD Unavailable [phone] Justin Rollins MD Unavailable Katherine James MD Unavailable [phone] Ponce Hughes MD Unavailable Encounter Details Date Type Department Care Team (Late st Contact Info) Description 05/30/2025 Documentation [facility] Medicine Oncology [address] [address] [place] [address] Radha Zacarias CMA Social History Tobacco Use Types Packs/Day Years Used Date Smoking Tobacco: Former Cigarettes 0.8 35 1 972 - 2007 Smokeless Tobacco: Never Alcohol Use Standard Drinks/Week Comments Not Currently [...] on file Legal Sex Female 8:03 AM RECORDS ANALYST Gender Identity Not on file Sexual Orientation Not on file 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 PT has an appointment on 05/31/25 at 1:00 pm. documented in this encounter Plan of Treatment Not on file documented as of this encounter Visit Diagnoses Not on filedocumented in this encounter Care Teams American Board Certified Orthotist Relationship Specialty Start Date End Date Anderson [place] MD [address] [address] PCP - General Family Medicine 10/02/19 Matt German MD PhD [address] [address] Referring Physician Neurosurgery 10/04/19 Bhavesh Bhatia MD [address] [place] [address] Radiation Oncologist Radiation Oncology 05/07/20 Justin Rollins MD [address] [place] [address] Consulting Physician Cardiology 12/29/20 Katherine James MD [address] [place] [address] Medical Oncologist/Mines Safety Engineer Hematology and Oncology 12/21/23 Ponce Hughes MD [address] [place] [address] Referring Physician Ophthalmology 01/31/25 documented as of this encounter
--- OUTSIDE RECORDS SUMMARY | 2025-05-31 13:15 | XMS_ITS | Clinical Summary ---
Author Organization [facility] Address [address] [facility] [place] [address] Care Team Providers Care Complaint Specialist Name Role Phone Anderson [place] MD Primary Care Provider [phone] Belle Frye MD Unavailable Source Comments [facility],non-owned Affiliates and Associated Physician Practices is amultiple site organization consisting of ambulatory clinics and hospital sitesin [place], [place], [place] and [place]. This disclosure is being madepursuant to the Care Everywhere program and may not contain all information available regarding this patient. Last updated 18.[facility] Allergies No known active allergies Medications * Be aware that medications may not be up to date on this document. Alwaysverify current medications with the patient. ALPRAZolam (Xanax) 0.5 MG tablet 2 times daily as needed 08/26/2022 Active Multiple Vitamin (Daily Vites) TABS Active Rosuvastatin Calcium 10 MG CPSP Take 10 mg by mouth once daily 09/12/2016 Active acetaminophen (Tylenol) 325 MG tablet Take 1 (one) tablet by mouth every 6 hours as needed 06/21/2022 Active umeclidinium-vi lanterol (Anoro Ellipta) 62.5-25 MCG/ACT inhaler Inhale 1 (one) puff by mouth once daily 09/12/2016 Active azelastine (Astepro) 205.5 MCG/SPRAY nasal spray Lacrosse 2 (two) sprays into each nostril 2 times daily Active Homeopathic Products (SIMILASAN EARACHE RELIEF OT) by Otic route 2 times daily as needed Active ASPIRIN 81 PO Take 81 mg by mouth once daily Active SALINE NASAL SPRAY NA Lacrosse 1 spray into the nose once daily Active COLLAGEN PO Take 12 g by mouth once daily Active WELLNESS PROTEIN SHAKE PO Take by mouth once daily Active loratadine (Claritin) 10 MG tablet Take 1 (one) tablet by mouth once daily Active levETIRAcetam (Keppra) 250 MG tablet Take 1 (one) tablet by mouth 2 times daily 60 tablet 11 10/04/2023 Active lacosamide (Vimpat) 100 MG tablet Take 1 (one) tablet by mouth 2 times daily 09/23/2023 Active Active Problems Patient Care Coordination No te Formatting of this note migh t be different from the original. 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 Unable to tolerate immunotherapy. Patient is currently only on surveillance and no active therapy. Patient had a visit 4 days ago 01/17 in clinic along with brain MRI reporting stable disease. Patient presented today to [facility] ER with ~15min of not being able to talk but resolved on arrival to ED and all exam reported normal per transfer center report. CT head was done and normal. [place] [facility] wanted to transfer since patient had cancer history at [facility]. Transfer center reached out to neurology that they deferred the transfer decision to neurosx per transfer center and neurosx currently unavailable in OR. I advised admit the patient in [place] and order MRI, start regular stroke w/u and monitor neuro exam. Since no headbleed and recent MRI 4 days ago at baseline and normal exam now, no urgency for transfer to [facility] and transfer center can follow up with neurosx after finishing their surgery for the need for transfer since would be their expert opinion. Problem Noted Date Diagnosed Date Centrilobular emphysema 10/31/2023 Tobacco abuse, in remission 10/31/2023 Perennial allergic rhinitis 10/31/2023 Malignant neoplasm of upper lobe of right lung 0 10/31/2023 Sequela of cerebrovascular accident 01/27/2023 Hyperlipidemia, unspecified 10/14/2022 Assessment & Plan (05/12/2023 10:49 PM CDT): Given history of TIA, I would recommend increasing rosuvastatin. However, she has previously being on higher dose of rosuvastatin and was not able to tolerate. Therefore, she is on her maximally tolerated dose already. We will continue. Syncope and collapse 10/14/2022 Weakness 10/14/2022 Aortic atherosclerosis 01/04/2022 Assessment & Plan (05/12/2023 10:49 PM CDT): Has history of coronary artery calcification without obstruction (cath at [facility] 2020). Risk factor modification. - Statin. Already on maximally tolerated dose. Continue. -Would continue aspirin. Difficulty with speech 07/19/2021 Imbalance 05/26/2021 Chest pain 10/13/2020 History of therapeutic radiation 09/24/2020 History of lump of right breast 07/28/2020 Malignant neoplasm of urinary bladder 06/03/2020 Overview (10/14/2022): Added automatically from request for surgery [id number] Malignant neoplasm of right upper lobe of lung 0 04/10/2020 Cancer Staging:Clinical: Unsigned Dizziness 11/07/2019 Overview (10/14/2022): Last Assessment & Plan: Etiology not entirely [...] up for an appt by neuro team Amnesia/memory disorder 11/05/2019 Overview (10/14/2022): Last Assessment & Plan: Follow up as OP 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 Drinks about 60 oz of fluid per day (<2L). Seizure disorder 10/30/2019 Overview (10/14/2022): Last Assessment & Plan: In setting of brain mets. Pt reports no recent seizures. Continue Trileptal 300 BID Sepsis 10/30/2019 Overview (10/14/2022): Last Assessment & Plan: Presented with fevers, malaise, fatigue, poor p.o. [...] 10/29 NGTD -CTM fever curve and tachycardia Brain metastasis 10/15/2019 Overview (12/12/2022): Last Assessment & Plan: Multiple brain metastasis, some with hemorrhagic component, [...] BID at D/C -Seizures and fall precautions Regulatory Import 12/11/22 Bladder mass 10/06/2019 Overview (10/14/2022): Last Assessment & Plan: Has seen urology who was planning TUR procedure, but wanted to d/w primary onc first. Could not find a note to document such a discussion. Without f/u with urology scheduled. - F/u with primary oncologist to discuss with urologist on resection. Malignant neoplasm of female breast 05/29/2009 Overview (10/14/2022): ,L breast T2N0,3.2 cm,ER+,NH+,Her2 neg,Lumpectomy,SN,RT AC x 4,Femara begun ,L breast T2N0,3.2 cm,ER+,NH+,Her2 neg,Lumpectomy,SN,RT AC x 4,Femara begun ,L breast T2N0,3.2 cm,ER+,NH+,Her2 neg,Lumpectomy,SN,RT AC x 4,Femara begun Resolved Problems Problem Noted Date Diagnosed Date Resolved Date Secondary malignant neoplasm of unspecified lung 10/14/2022 10/29/2023 Encounter for follow-up surv [facility] of breast cancer 10/31/2019 10/29/2023 Pulmonary infiltrate on chest x-ray 10/30/2019 10/29/2023 Overview (10/14/2022): Last Assessment & Plan: Noted during prior admission with c/f infection vs organizing PNA. S/p treatment with Levaquin and currently on steroid taper Continue prednisone 50mg (decreased from 60 to 50mg today) with plan to decrease by 10mg Q5 days. Primary cancer of right upper lobe of lung 10/15/2019 10/29/2023 Overview (10/14/2022): Last Assessment & Plan: See top of note for onc hx. Recently diagnosed lung adenocarcinoma with multiple brain metastasis and mediastinum and hilar LAD. She is s/p resection of the largest brain metastasis and WBRT and pembro on 10/22. - Continue follow up with Dr. Carranza, no changes to her regimen or therapy inpatient, anticipate discharge soon as her sx are improving. Immunizations Immunization Administration Dates Next Due INFLUENZA VACCINE, TRIV. (AF LURIA, FLUZONE TRIVALENT; 6MO+) (IIV3) 06/02/2021 HEP A VACCINE, ADULT 08/07/2017 INFLUENZA VACCINE 06/12/2019 INFLUENZA VACCINE, CELL CULT URE, QUADR. (FLUCELVAX QUADRIVALENT; 6MO+) (CCIIV4) 06/09/2022 INFLUENZA VACCINE, HIGH-DOSE , QUADR. (FLUZONE HIGH-DOSE QUADRIVALENT; 65Y+), 0.7 ML (HD-IIV4) 06/13/2023 INFLUENZA VACCINE, QUADR. (F LUZONE; FLULAVAL; FLUARIX; AFLURIA QUADRIVALENT; 6MO+), 0.5 ML (IIV4) 06/04/2020,06/28/2019 PNEUMOCOCCAL PPSV23 07/14/2021 TDAP, HISTORIC VACCINE 04/23/2022 iNFLUENZA VACCINE, RECOM-BURCH, QUADR. (FLUBLOCK QUADRIVALENT; 18Y+) (RIV4) 08/11/2018 Family History Medical History Relation Name Comments Cancer - Bladder Father CVA Mother Relation Name Status Comments Father Mother Social History Tobacco Use Types Packs/Day Years Used Date Smoking Tobacco: Former Cigarettes Smokeless Tobacco: Never Tobacco Cessation:Counseling Given: Not Answered Alcohol Use Standard Drinks/Week Comments Yes 1 (1 standard drink = 0.6 oz pure alcohol) rarely - 1 glass wine with friends out to dinner AUDIT-C Answer Date Recorded Q1: How often do you have a drink containing alcohol? Never 11/14/2023 Q2: How many drinks containi ng alcohol do you have on a typical day when you are drinking? Patient does not drink Q3: How often do you have si x or more drinks on one occasion? Never 11/14/2023 Comments No Sex and Gender Information Value Date Recorded Sex Assigned at Not on file Legal Sex Female 3:46 PM PSYCHOLOGIST DEVELOPMENTAL Gender Identity Not on file Sexual Orientation Not on file Last Filed Vital Signs Vital Sign Reading Time Taken Comments Blood Pressure 109/74 12/21/2024 9:22 AM CDT Pulse 88 12/21/2024 9:22 AM CDT Temperature 36.1 C (97 F) 12/21/2024 9:22 AM CDT Respiratory Rate 14 11/14/2023 1:30 PM PSYCHOLOGIST DEVELOPMENTAL Oxygen Saturation 93% 12/21/2024 9:22 AM CDT Inhaled Oxygen Concentration - - Weight 56.7 kg (125 lb) 12/21/2024 9:22 AM CDT Height 160 cm (5' 3) 12/21/2024 9:22 AM CDT Body Mass Index 22.14 12/21/2024 9:22 AM CDT Plan of Treatment Upcoming Encounters Date Type Department Care Team (Late st Contact Info) Description 12/20/2025 11:00 AM CDT Office Visit [facility] - Urology [address] [place] [phone] Brad Jaramillo MD [address] [place] [id number] Health Maintenance Due Date Last Done Comments COLOGUARD (AGES 45-75) - COLON CA SCREENING 1958 COLON MONITORING 1958 COLONOSCOPY - COLON CA SCREENING 1958 CT COLONOGRAPHY - COLON CA SCREENING 1960 Colorectal Cancer Screening 1958 FIT - COLON CA SCREENING 1958 FLEX SIG - COLON CA SCREENING 1958 HEPATITIS C SCREENING 05/23/1976 ZOSTER VACCINE (1 of 2) 2008 Respiratory Syncytial Virus (RSV) Vaccine Pt: or over 60 yrs (1 - Risk 60-74 years 1-dose series) 2018 PNEUMOCOCCAL VACCINE 50+ (2 of 2 - PCV) 07/14/2022 07/14/2021 DEPRESSION SCREENING 09/12/2024 MEDICARE AWV CALENDAR YEAR 2024 MAMMOGRAM 05/06/2025 05/06/2023, 04/13, 05/06/2023, Additional history exists COVID-19 VACCINE ( season) 2025 12/03/2020, 11/13/2020 INFLUENZA VACCINE (#1) 2025 , 06/09/2022, 06/02/2021, Additional history exists DTAP/TDAP/TD VACCINES (2 - Td or Tdap) 04/23/2032 04/23/2022 BONE DENSITY TESTING Completed 03/22/2012 HEPATITIS B VACCINE Aged Out No longe r eligible based on patient's age to complete this topic HIB VACCINE Aged Out No longer eligi ble based on patient's age to complete this topic HPV VACCINE Aged Out No longer eligi ble based on patient's age to complete this topic MENINGOCOCCAL (Group B) VACCINE SHARED DECISION-MAKING Aged Out No longer eligible based on patient's age to complete this topic MENINGOCOCCAL GROUPS A/C/Y/W VACCINE Aged Out No longer eligible based on patient's age to complete this topic Procedures Procedure Name Priority Date/Time Associated Diagnosis Comments MAMMO BILAT SCREENING W CLAUDIO Routine 05/06/2023 9:39 AM CDT Malignant neoplasm of left female breast, unspecified estrogen receptor status, unspecified site of breast from Last 3 Months or Most Recently Relevant to Health Maintenance Results * MAMMO BILAT SCREENING W CLAUDIO (05/06/2023 9:39 AM CDT) Anatomical Region Laterality Modality Breast Bilateral Mammography 05/06/2023 9:44 AM CDT Impressions 05/06/2023 10:34 AM CDT : Right breast: Benign mass in the upper outer breast unchanged mammographically from 07/24/2020 and correlates to the finding on recent chest CT abdomen and pelvis dated 04/25/2023. Left breast: Post-treatment changes. Benign, no mammographic evidence of malignancy. RECOMMENDATION: 1. Screening mammography in one year, pending no interval breast concerns. 2. Given the dense breast parenchyma and prior history of breast cancer, consider screening breast MRI or complete breast ultrasound for supplemental screening. This can be alternated at 6 month intervals with mammography or performed near the time of screening mammography. If there are any questions, please call [phone]. OVERALL ASSESSMENT: BI-RADS CATEGORY 2: BENIGN. > Interpreting Provider: Ana Maria Small MD on 05/06/2023 10:34 AM Narrative 05/06/2023 10:34 AM CDT EXAMINATION: DIGITAL MAMMO BILAT SCREENING W CLAUDIO AND WITH CAD LOCATION: [facility] EXAM DATE: 05/06/2023 HISTORY: 62-year-old female with history of left breast cancer treated with breast-conserving therapy presents for mammographic correlation of an unchanged mass in the right breast noted on CT chest abdomen and pelvis dated 04/25/2023. No current breast complaints. Personal history of bladder cancer and lung cancer. COMPARISON: Comparison is made with relevant prior imaging in PACS. TECHNIQUE: Tomosynthesis (3D) and reconstructed synthetic 2-D images acquired and reviewed in the bilateral craniocaudal and mediolateral oblique projections. A total of 5 images obtained. Computer-aided detection (CAD) was utilized. BREAST PARENCHYMAL COMPOSITION: Category C: The breasts are heterogeneously dense which may obscure small masses. FINDINGS: Right breast: No significant masses, suspicious calcifications, or other abnormalities are seen. Redemonstrated is a benign oval circumscribed mass in the upper outer breast that is unchanged mammographically from 07/24/2020 and correlates to the finding on recent CT chest abdomen and pelvis dated 04/25/2023. Left breast: Post-treatment changes are present. No significant masses, suspicious calcifications, or other abnormalities are seen. Supriya Rai MD MAMMO ORDERABLES Final Result from Last 3 Months or Most Recently Relevant to Health Maintenance Insurance [facility] [place] [address] Care Teams Complaint Specialist Relationship Specialty Start Date End Date Anderson [place] MD [address] [place] [address] PCP - General 09/14/22 Belle Frye MD [address] [address] Hematology and Oncology 10/29/23
--- OUTSIDE RECORDS SUMMARY | 2025-05-31 13:15 | XMS_ITS | Encounter Summary ---
Author Organization [facility] Address [address] [facility] [place] [address] Care Team Providers Care Supervisor Gas Meter Repair Name Role Phone Anderson [place] MD Primary Care Provider [phone] Belle Frye MD Unavailable [phone] Encounter Details Date Type Department Care Team (Late Contact Info) Description 06/03/2023 Lab Requisition [facility] - DermPath Lab [address] [facility] [place] [address] Charanjit Suggs MD [address] [place] [address] Social History Tobacco Use Types Packs/Day Years Used Date Smoking Tobacco: Former Cigarettes Smokeless Tobacco: Never Alcohol Use Standard Drinks/Week Comments Yes 1 (1 standard drink = 0.6 oz pure alcohol) rarely - 1 glass wine with friends out to dinner Comments No Sex and Gender Information Value Date Recorded Sex Assigned at Not on file Legal Sex Female 3:46 PM TIP PUNCHER Gender Identity Not on file Sexual Orientation Not on file documented as of this encounter Plan of Treatment Upcoming Encounters Date Type Department Care Team (Late Contact Info) Description 12/20/2025 11:00 AM CDT Office Visit [facility] - Urology [address] [place] [phone] Brad Jaramillo MD [address] [facility] 2[address] DIV [place]IC [place] [address] documented as of this encounter Procedures Procedure Name Priority Date/Time Associated Diagnosis Comments DERMATOPATHOLOGY Routine 06/01/2023 12:0 0 AM CDT documented in this encounter Results * DERMATOPATHOLOGY (06/01/2023 12:00 AM CDT) Case Report Dermatopathology Report Case: [id number] Authorizing Provider: Charanjit Suggs MD Collected: 06/01/2023 12:00 AM Ordering Location: [facility] DermPath Lab Received: 06/03/2023 07:18 AM Pathologist: Radha Brown MD Specimen: Skin, left forearm 10:47 AM CDT DERMATOPATHOLOGY LABORATORY Final Diagnosis Specimen A. SKIN, left forearm: DERMAL HEMORRHAGE (I99.8) (see microscopic description) 10:47 AM CDT DERMATOPATHOLOGY LABORATORY at 1047 CDT Clinical History Bruise vs other Path# [id number] 10:47 AM CDT DERMATOPATHOLOGY LABORATORY Gross Description Specimen A: Received is one formalin filled container labeled with the patient's name and designated left forearm. The specimen consists of a shave biopsy measuring 9x4x1 mm. Jar 0. 10:47 AM CDT DERMATOPATHOLOGY LABORATORY Microscopic Description Specimen A. SKIN, left forearm: Sections show dermal hemorrhage. 10:47 AM CDT DERMATOPATHOLOGY LABORATORY Disclaimer An external and internal positive and negative controls are appropriate for the histochemical, immunohistochemical and immunofluorescence stain(s) in this case (if any), except where stated explicitly. The performance characteristics of the stain(s) cited in this report were developed and its performance characteristic determined by the Dermatopathology Laboratory at [facility], directed by Dr. Gege Carson. These tests need not be, and therefore are not, approved by the [place] Food and Drug Administration. The tests are used for clinical purposes. Billing Codes Specimen Charges Stain Charges 96539 1 10:47 AM CDT DERMATOPATHOLOGY LABORATORY Embedded Images 10:47 AM CDT DERMATOPATHOLOGY LABORATORY Pathology/Cytolog y TISSUE SPECIMEN FROM SKIN / Unknown 06/01/2023 06/03/2023 7:18 AM CDT Charanjit Suggs MD LAB - PATHOLOGY/CYTOLOGY ORDER MALVIN Final Result DERMATOPATHOLOGY LABORATORY [facility] - Department of Dermatology [facility] Medicine [address] [place] [address], [address] [phone] documented in this encounter Visit Diagnoses Not on filedocumented in this encounter Care Teams Supervisor Gas Meter Repair Relationship Specialty Start Date End Date Anderson [place] MD [address] [place] [address] PCP - General 09/14/22 Belle Frye MD [address] [address] Hematology and Oncology 10/29/23 documented as of this encounter
--- OUTSIDE RECORDS SUMMARY | 2025-05-31 13:15 | XMS_ITS | Encounter Summary ---
Author Organization [facility] Address [address] [place] [address] Care Team Providers Care Property And Equipment Clerk Name Role Phone Anderson [place] MD Primary Care Provider [phone] Encounter Details Date Type Department Care Team (Late st Contact Info) Description 02/23/2023 Intent Media Message Enc [place] [facility], [address] [phone] Melony Merida PA-C [address] [facility], [address] [place], [place] [id number] PRO-BRAIN NATRIURETIC PEPTIDE Social History Tobacco Use Types Packs/Day Years [...] on filedocumented in this encounter Care Teams Property And Equipment Clerk Relationship Specialty Start Date End Date Anderson [place] MD [address] [place] [address] [address] [place] [address] PCP - General FAMILY PRACTICE 01/14/23 documented as of this encounter
--- OUTSIDE RECORDS SUMMARY | 2025-05-31 13:15 | XMS_ITS ---
Author Organization [facility] Address [address] [facility] [place] [address] Care Team Providers Care Satellite Dish Technician Name Role Phone Anderson [place] MD Primary Care Provider [phone] Belle Frye MD Unavailable [phone] Active Problems Patient Care Coordination No te [...] reporting stable disease. Patient presented today to [facility] ER with ~15min of not being able to talk but resolved on arrival to ED and all exam reported normal per transfer center report. CT head was done and normal. [place] ED wanted to transfer since patient had cancer history at [facility]. Transfer center reached out to neurology that they deferred the transfer decision to neurosx per transfer center and neurosx currently unavailable in OR. I advised admit the patient in [place] and order MRI, start regular stroke w/u [...] coronary artery calcification without obstruction (cath at [facility] 2020). Risk factor modification. - Statin. Already on maximally tolerated dose. Continue. -Would continue aspirin. Difficulty with speech 07/19/2021 Imbalance 05/26/2021 Chest pain 10/13/2020 History of therapeutic radiation 09/24/2020 History of lump of right breast 07/28/2020 Malignant neoplasm of urinary bladder 06/03/2020 Overview (10/14/2022): Added automatically from request for surgery [id number] Malignant neoplasm of right upper lobe of [...] breast 05/29/2009 Overview (10/14/2022): ,L breast T2N0,3.2 cm,ER+,ND+,Her2 neg,Lumpectomy,SN,RT AC x 4,Femara begun ,L breast T2N0,3.2 cm,ER+,ND+,Her2 neg,Lumpectomy,SN,RT AC x 4,Femara begun ,L breast T2N0,3.2 cm,ER+,ND+,Her2 neg,Lumpectomy,SN,RT AC x 4,Femara begun Current Treatment and Therapy Plans No current plan information found. Past Treatment and Therapy Plans No past plan information found. Lifetime Dose Tracking * Chemical Lifetime Dose Automatic Entry Manual Entr y Dose Length Product 1,368 mGy-cm 1,368 mGy-cm 0 mGy-cm Resolved Problems Problem Noted Date Diagnosed Date Resolved Date Secondary malignant neoplasm of unspecified lung 10/14/2022 10/29/2023 Encounter for follow-up her[facility] penaloza of breast cancer 10/31/2019 10/29/2023 Pulmonary infiltrate [...]
--- OUTSIDE RECORDS SUMMARY | 2025-05-31 13:15 | XMS_ITS | Encounter Summary ---
Author Organization [facility] Address [address] [place] [address] Care Team Providers Care Soldering Machine Feeder Name Role Phone Anderson Hartley MD Primary Care Provider [phone] Encounter Details Date Type Department Care Team (Late st Contact Info) Description 02/22/2023 [employer] Message Enc [place] [facility] joao THREE [facility], [address] [place] [id number] Melony Merida PA-C [address] [facility], [address] [place] [id number] fish oil supplements Social History Tobacco Use Types Packs/Day Years [...] on filedocumented in this encounter Care Teams Soldering Machine Feeder Relationship Specialty Start Date End Date Anderson Hartley MD [address] [place] [address] [address] [place] [address] PCP - General FAMILY PRACTICE 01/14/23 documented as of this encounter
--- OUTSIDE RECORDS SUMMARY | 2025-05-31 13:15 | XMS_ITS | Encounter Summary ---
Author Organization [facility] Address [address] [place] [address] Care Team Providers Care Tea Plantation Worker Name Role Phone Anderson Hartley MD Primary Care Provider [phone] Encounter Details Date Type Department Care Team (Latest Contact Info) Description 11/05/2008 Outpatient Historical [facility] Radiation Oncology [place] [address] [facility] [address] [place] [phone] Escobar Alvarez MD [address] [place] [phone] Malignant Neoplasm of Lower-Outer Quadrant of Female Breast (CMS/HCC) Social History Tobacco Use Types Packs/Day Years Used Date Smoking Tobacco: Never Assessed Comments Unknown Sex and Gender Information Value Date Recorded Sex Assigned at Not on file Legal Sex Female 5:42 AM QUALITY CONTROL 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 Gender Identity Not on file Sexual Orientation Not on file documented as of this encounter Plan of Treatment Upcoming Encounters Date Type Department Care Team (Late st Contact Info) Description 06/18/2025 4:30 PM CDT Telephone Check Up [facility] Oncology and Hematology - [address] [facility] [address] [place] [address] Kevin Dunlap MD [address] [facility] [address] [place] [address] documented as of this encounter Visit Diagnoses Diagnosis Malignant neoplasm of lower-outer quadrant of female breast (CMS/HCC) Malignant neoplasm of lower-outer quadrant of female breast documented in this encounter Care Teams Tea Plantation Worker Relationship Specialty Start Date End Date Anderson Hartley MD [address] [place] [address] PCP - General 11/05/08 documented as of this encounter
--- OUTSIDE RECORDS SUMMARY | 2025-05-31 13:16 | XMS_ITS | Encounter Summary ---
Author Organization [facility] Address [address] [place] [address] Care Team Providers Care Civil Defense Director Name Role Phone Anderson Hartley MD Primary Care Provider [phone] Encounter Details Date Type Department Care Team (Late st Contact Info) Description 04/08/2023 [employer] Message Enc [place] [facility] THREE [facility], [address] [place], [place] [address] Melony Merida PA-C [address] [facility], [address] [place], [place] [id number] $116 [employer] PATH[facility] [employer] Social History Tobacco Use Types Packs/Day Years [...] on filedocumented in this encounter Care Teams Civil Defense Director Relationship Specialty Start Date End Date Anderson Hartley MD [address] [place] [address] [address] [place], [place] [address] PCP - General FAMILY PRACTICE 01/14/23 documented as of this encounter
--- OUTSIDE RECORDS SUMMARY | 2025-05-31 13:16 | XMS_ITS | Encounter Summary ---
Author Organization [facility] Healthcare Address [address] [place] [address] Care Team Providers Care Environmental Programs Manager Name Role Phone Anderson Hartley MD Primary Care Provider + [phone] Matt German MD PhD Unavailable [phone] Leonid Carranza MD Unavailable [phone] Abimael Andrade MD Unavailable Elizabeth Gutierrez PhD Unavailable [phone] Bhavesh Bhatia MD Unavailable [phone] Justin Rollins MD Unavailable [phone] Rosmery Field DPT Unavailable + Kimberlyn Pantoja DPT Unavail able Cecilia Garland REAL ESTATE SALES AGENT Unavailable Katherine James MD Unavailable [phone] Ponce Hughes MD Unavailable [phone] Reason for Referral * Diagnostic Imaging (Routine) - Closed Specialty Diagnoses / Procedures Referred By Contnico t Referred To Contact Radiology Diagnoses Brain metastasis Procedures MRI Brain W WO Contrast Moses Gaviria MD [address] [address] Referral ID Status Reason Start Date Expiration Date Visits Re quested Visits Authorized [id number] Closed 01/15/2020 07/13/2020 1 1 UNICATIONS AND SIGNALS SUPERVISOR Encounter Details Date Type Department Care Team (Late st Contact Info) Description 10/26/2019 Orders Only [facility] Radiation Oncology [address] [facility] [place] [address] Klarissa Marte RN Brain metastasis (CMS/HCC) (Primary Dx) Social History Tobacco Use Types Packs/Day Years Used Date Smoking Tobacco: Former Smokeless Tobacco: Never Comments No Sex and Gender Information Value Date Recorded Sex Assigned at Not on file Legal Sex Female 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 Then 2 tabs in am & 1 tab in pm x7days. Then 2 tabs am & 2 tabs pm x6 months. 92 tablet 6 10/26/2019 03/11/2020 memantine (NAMENDA) 5 mg tabletIndications: Moderate to Severe Alzheimer's Type Dementia Take 1 tablet (5 mg total) by mouth 2 (two) times a day 60 tablet 11 10/26/2019 10/26/2019 documented in this encounter Plan of Treatment Not on file documented as of this encounter Results * MRI Brain W WO Contrast (01/16/2020 8:43 AM CDT) Anatomical Region Laterality Modality Head and Neck N/A Magnetic Resonan ce 01/16/2020 12:1 4 PM CDT Impressions 01/16/2020 12:36 PM CDT 1. Interval decrease in size of multiple treated hemorrhagic metastases involving the bifrontal, left parietal/temporal lobes. No MR evidence for new metastatic disease. Dictated by: Casper Cole M.D. The radiology attending physician has personally reviewed this study, and had reviewed and/or edited this written report and agrees with it. Electronically signed by: Hannah Epstein M.D. Narrative 01/16/2020 12:36 PM CDT EXAMINATION: Magnetic resonance imaging (MRI) of the brain and brainstem without and with contrast HISTORY: 59-year-old female with metastatic lung cancer with left parietal hemorrhagic mass status post resection as well as other residual brain metastases status post whole brain radiation completed 10/22/2019. Currently receiving chemotherapy. TECHNIQUE: Multiplanar multi-weighted MRI of the brain and brainstem was performed without and with intravenous contrast using the brain tumor protocol. This included high-resolution T1-weighted images with intravenous contrast and data for perfusion analysis. Contrast information: 10 mL Dotarem COMPARISON: 11/07/2019, 10/07/2019 FINDINGS: There are postoperative changes of prior left parietal craniotomy. Again redemonstrated are multiple treated metastases with concomitant hematomas involving the bifrontal, left parietal, and left temporal lobes. These metastases have slightly decreased in size when compared to the prior examination. For reference, a left frontal lesion today measures 1.4 x 1.8 cm, previously 2.5 x 2.2 cm best seen on series 17 image 127/176. There is minimal surrounding residual edema from the treated metastases. Multiple punctate hemorrhagic foci are noted on susceptibility weighted sequences which may indicate smaller treated metastases. No new enhancing lesions to suggest new disease. The superior sagittal sinus demonstrates normal venous flow. The corpus callosum is normal in shape and signal intensity. The posterior fossa is unremarkable. The pituitary and sella are normal. The brainstem and craniocervical junction are unremarkable. Diffusion weighted images reveal no hyperintensities to suggest acute cerebral infarction. The ventricles are normal in size and position without evidence of hydrocephalus. The paranasal sinuses are normal. The visualized portions of the mastoids are unremarkable. The orbits appear normal. Normal flow voids are demonstrated in the carotid arteries and basilar artery. Procedure Note Hannah Epstein MD - 01/16/2020 EXAMINATION: Magnetic resonance imaging (MRI) of the brain and brainstem without and with contrast HISTORY: 59-year-old female with metastatic lung cancer with left parietal hemorrhagic mass status post resection as well as other residual brain metastases status post whole brain radiation completed 10/22/2019. Currently receiving chemotherapy. TECHNIQUE: Multiplanar multi-weighted MRI of the brain and brainstem was performed without and with intravenous contrast using the brain tumor protocol. This included high-resolution T1-weighted images with intravenous contrast and data for perfusion analysis. Contrast information: 10 mL Dotarem COMPARISON: 11/07/2019, 10/07/2019 FINDINGS: There are postoperative changes of prior left parietal craniotomy. Again redemonstrated are multiple treated metastases with concomitant hematomas involving the bifrontal, left parietal, and left temporal lobes. These metastases have slightly decreased in size when compared to the prior examination. For reference, a left frontal lesion today measures 1.4 x 1.8 cm, previously 2.5 x 2.2 cm best seen on series 17 image 127/176. There is minimal surrounding residual edema from the treated metastases. Multiple punctate hemorrhagic foci are noted on susceptibility weighted sequences which may indicate smaller treated metastases. No new enhancing lesions to suggest new disease. The superior sagittal sinus demonstrates normal venous flow. The corpus callosum is normal in shape and signal intensity. The posterior fossa is unremarkable. The pituitary and sella are normal. The brainstem and craniocervical junction are unremarkable. Diffusion weighted images reveal no hyperintensities to suggest acute cerebral infarction. The ventricles are normal in size and position without evidence of hydrocephalus. The paranasal sinuses are normal. The visualized portions of the mastoids are unremarkable. The orbits appear normal. Normal flow voids are demonstrated in the carotid arteries and basilar artery. IMPRESSION: 1. Interval decrease in size of multiple treated hemorrhagic metastases involving the bifrontal, left parietal/temporal lobes. No MR evidence for new metastatic disease. Dictated by: Casper Cole M.D. The radiology attending physician has personally reviewed this study, and had reviewed and/or edited this written report and agrees with it. Electronically signed by: Hannah Epstein M.D. Moses Gaviria MD [facility] MRI PROCEDURES Final Result documented in this encounter Visit Diagnoses Diagnosis Brain metastasis- Primary Secondary malignant neoplasm of brain and spinal cord Brain metastasis Secondary malignant neoplasm of brain and spinal cord documented in this encounter Discontinued Medications Medication Sig Discontinue Reason Start Date End Da te memantine (NAMENDA) 5 mg tabletIndications:Moder ate to Severe Alzheimer's Type Dementia Take 1 tablet (5 mg total) by mouth 2 (two) times a day Other 10/26/2019 10/26/2019 memantine (NAMENDA TITRATION PACK) tablet pack Use as directed for first month. 10/10/2019 10/26/2019 documented as of this encounter Additional Health Concerns Infection Onset Date Last Indicated Resolved Time COVID: Suspected 03/05/2020 03/10/2020 03/13/2020 8:47 PM CDT Respiratory Infection (ALTAGRACIA), contact + droplet Comment:Automatically added due to negative COVID-19 result. 03/13/2020 03/13/2020 03/27/2020 3:0 7 AM CDT documented as of this encounter Care Teams Environmental Programs Manager Relationship Specialty Start Date End Date Anderson Hartley MD [address] [address] PCP - General Family Medicine 10/02/19 Matt German MD PhD [address] [address] Referring Physician Neurosurgery 10/04/19 Leonid Carranza MD [address] [address] Medical Oncologist/Hematologis t Medical Oncology 10/04/19 09/13/24 Abimael Andrade MD [address] [phone] Radiation Oncologist Radiation Oncology 10/07/19 Elizabeth Gutierrez, PhD [address] [address] Nurse Practitioner Radiation Oncology 11/14/19 09/23/20 Bhavesh Bhatia MD [address] [place] [address] Radiation Oncologist Radiation Oncology 05/07/20 Justin Rollins MD [address] [place] [address] Consulting Physician Cardiology 12/29/20 Rosmery Field DPT [address] [facility] [address] [place] [address] Physical Therapist Physical Therapy 06/11/21 06/28/21 Kimberlyn Pantoja DPT [address] [facility] [address] [place] [address] Physical Therapist Physical Therapy 06/29/21 09/07/21 Cecilia Garland, REAL ESTATE SALES AGENT [address] [facility] [address] [place] [address] Speech Language Pathologist Speech Therapy 07/10/21 10/01/21 Katherine James MD [address] [facility] [address] [place] [address] Medical Oncologist/Hematologis t Hematology and Oncology 12/21/23 Ponce Hughes MD [address] [place] [address] Referring Physician Ophthalmology 01/31/25 documented as of this encounter
--- OUTSIDE RECORDS SUMMARY | 2025-05-31 13:16 | XMS_ITS | Encounter Summary ---
Author Organization [facility] Healthcare Address [address] [place] [address] Care Team Providers Care Etcher Machine Name Role Phone Anderson Hartley MD Primary Care Provider + [phone] Matt German MD PhD Unavailable [phone] Leonid Carranza MD Unavailable [phone] Bhavesh Bhatia MD Unavailable Justin Rollins MD Unavailable [phone] Rosmery Field DPT Unavailable + Kimberlyn Pantoja DPT Unavail able Cecilia Garland [facility] Unavailable [phone] Katherine James MD Unavailable [phone] Ponce Hughes MD Unavailable [phone] Encounter Details Date Type Department Care Team (Late st Contact Info) Description 03/26/2021 Telephone [facility] [address] [place] [address] Ghislaine Gonzalez, RT Social History Tobacco Use Types Packs/Day Years Used Date Smoking Tobacco: Former Cigarettes 0.8 35 1 972 - 2007 Smokeless Tobacco: Never Alcohol Use Standard Drinks/Week Comments Not Currently 0 (1 standard drink = 0.6 oz pur e alcohol) socially AUDIT-C Answer Date Recorded Q1: How often do you have a drink containing alc ohol? Monthly or less 01/05/2021 Q2: How many drinks containi ng alcohol do you have on a typical day when you are drinking? 1 or 2 01/05/2021 Q3: How often do you have si x or more drinks on one occasion? 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 Gender Identity Not on file Sexual Orientation Not on file Occupation Industry Job Start Date Job End Date retired Not on file Not on file Not on file documented as of this encounter Plan of Treatment Not on file documented as of this encounter Visit Diagnoses Not on filedocumented in this encounter Care Teams Etcher Machine Relationship Specialty Start Date End Date Anderson Hartley MD [address] [address] PCP - General Family Medicine 10/02/19 Matt German MD PhD [address] [address] Referring Physician Neurosurgery 10/04/19 Leonid Carranza MD [address] [address] Medical Oncologist/Hematologis t Medical Oncology 10/04/19 09/13/24 Bhavesh Bhatia MD [address] [place] [address] Radiation Oncologist Radiation Oncology 05/07/20 Justin Rollins MD [address] [place] [address] Consulting Physician Cardiology 12/29/20 Rosmery Field, DPT [address] LL [facility] [address] [place] [address] Physical Therapist Physical Therapy 06/11/21 06/28/21 Kimberlyn Pantoja, DPT [address] LL [facility] [address] [place] [address] Physical Therapist Physical Therapy 06/29/21 09/07/21 Cecilia Garland, C UNIX DEVELOPER [address] [facility] [address] [place] [address] Speech Language Pathologist Speech Therapy 07/10/21 10/01/21 Katherine James MD [address] LL [facility] [address] [place] [address] Medical Oncologist/Hematologis t Hematology and Oncology 12/21/23 Ponce Hughes MD [address] [place] [address] Referring Physician Ophthalmology 01/31/25 documented as of this encounter
--- OUTSIDE RECORDS SUMMARY | 2025-05-31 13:16 | XMS_ITS | Clinical Summary ---
Author Organization [facility] Address [address] [place] [address] Phone Care Team Providers Care Outpatient Coding Specialist Name Role Phone Anderson Hartley MD Primary Care Provider [phone] Allergies No known active allergies Medications acetaminophen (TYLENOL) 325 mg tablet Take 325 mg by mouth. 2 Active ALPRAZolam (XANAX) 0.5 mg tablet Take 0.5 mg by mouth. 8 Active azelastine (ASTELIN) 137 mcg/actuation nasal spray Administer 1 [place]anan in each nostril 2 times daily. 5 Active cetirizine (ZyrTEC) 10 mg Tablet, Chewable Take 10 mg by mouth daily. Active cholecalciferol , Vitamin D3, (VITAMIN D3) 25 mcg (1,000 unit) Capsule Take 1,000 Units by mouth daily. 4 Active cyanocobalamin (Vitamin B-12) 1,000 mcg Tablet Active levETIRAcetam (KEPPRA) 250 mg tablet Take 250 mg by mouth 2 times daily. 3 03/29/20 26 Active prednisoLONE acetate (PRED FORTE) 1 % suspension 1 Drop. 5 Active rosuvastatin (CRESTOR) 10 mg tablet Take 10 mg by mouth daily at bedtime. 0 Active Active Problems Patient Care Coordination No te Formatting of this note migh t be different from the original. Primary Care: Anderson Hartley MD Referring Provider: Anderson Hartley [facility] [place] [address] Other: Problem Noted Date Diagnosed Date Malignant neoplasm of breast (female), unspecifi ed site 05/29/2009 Overview (05/29/2009): -2005,L breast T2N0,3.2 cm,ER+,[place]+,Her2 neg,Lumpectomy,SN,RT AC x 4,Femara begun Encounters Date Type Department Care Team Description 05/31/2025 1:00 PM CDT Office Visit [facility] Oncology and Hematology - [facility] [address] [place] [phone] Kevin Dunlap MD Malignant neoplasm of lung, unspecified laterality, unspecified part of lung (CMS/HCC) (Primary Dx) from Last 3 Months Family History Medical History Relation Name Comments Cancer Father bladder Heart Disease Father Stroke Father Stroke Mother Cancer Paternal Uncle throat Relation Name Status Comments Father Mother Paternal Uncle Social History Tobacco Use Types Packs/Day Years [...] on file Legal 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 Female 5:42 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 Gender Identity Not on file Sexual Orientation [...] Mass Index 21.68 05/31/2025 12:21 PM CDT Plan of Treatment Upcoming Encounters Date Type Department Care Team (Late st Contact Info) Description 06/18/2025 4:30 PM CDT Telephone Check Up [facility] Oncology and Hematology - [address] [facility] [address] [place] [address] Kevin Dunlap MD [address] [facility] [address] [place] [address] Health Maintenance Due Date Last Done Comments COLORECTAL SCREENING 2003 Colorectal Cancer Screening 2003 FIT-DNA Q 3 years 2003 FIT/FOBT Q 1 year 2003 Flex Sig/CT Colonography Q 5 years 2003 ZOSTER VACCINE (1 of 2) 2008 RSV VACCINE (60+ or ) (1 - Risk 60-74 years 1-dose series) 2018 PNEUMOCOCCAL VACCINE 50+ YEA RS (2 of 2 - PCV) 07/14/2022 07/14/2021 OSTEOPOROSIS SCREENING 2023 03/22/2012, 2009 BREAST CANCER SCREENING 05/06/2024 05/06/20 23, 05/06/2023, 02/23/2022, Additional history exists [place] Preventative Visit/Annual Wellness Visit 09/12/2024 12/09/2021 INFLUENZA VACCINE (#1) 2025 , 06/09/2022, 06/09/2022, Additional history exists COVID-19 Vaccine (3 - 2024-2 6 season) 2025 12/03/2020, 11/13/2020 DTAP/TDAP/TD VACCINES (2 - T d or Tdap) 04/23/2032 04/23/2022 Procedures Procedure Name Priority Date/Time Associated Diagnosis Comments MAMMO DIAGNOSTIC BILATERAL W OR WO CAD Routine 03/28/2013 XR DEXA BONE DENSITY AXIAL 1 OR MORE SITES Routine 03/22/2012 Malignant neoplasm of breast (female), unspecified site (CMS/HCC) Post-menopausal from Last 3 Months or Most Recently Relevant to Health Maintenance Results * MAMMO DIGITAL DIAG BILAT (03/28/2013) Anatomical Region Laterality Modality Breast Bilateral Other us Lauryn Silva MD MAMMO ORDERABLES Final Result * XR DEXA BONE DENSITY AXIAL 1 OR MORE SITES (03/22/2012) T-SCORE FEMUR (LEFT) EXTERNAL RADIOLOGY T-SCORE FEMUR (RIGHT) EXTERNAL RADIOLOGY T-SCORE FEMUR >=-0.99 [employer] ARCHITECT AL RADIOLOGY T-SCORE SPINE >=-0.99 [employer] ARCHITECT AL RADIOLOGY T-SCORE HIP (LEFT) EXTERNAL RADIOLOGY T-SCORE HIP (RIGHT) EXTERNAL RADIOLOGY T-SCORE HIP >=-0.99 EXTERNAL RADIOLOGY Anatomical Region Laterality Modality Other Lauryn Silva MD DIAGNOSTIC IMAGING ORDERABLES Final Result from Last 3 Months or Most Recently Relevant to Health Maintenance Insurance [facility] [id number] Care Teams Outpatient Coding Specialist Relationship Specialty Start Date End Date Anderson Hartley MD [facility] [place] [phone] PCP - General 11/05/08
--- OUTSIDE RECORDS SUMMARY | 2025-05-31 13:16 | XMS_ITS | Encounter Summary ---
Author Organization [facility] Address [address] [place] [address] Care Team Providers Care Finishing Wire Sawyer Name Role Phone Anderson Hartley MD Primary Care Provider [phone] aMtt German MD PhD Unavailable [phone] Leonid Carranza MD Unavailable [phone] Abimael Andrade MD Unavailable Elizabeth Gutierrez PhD Unavailable [phone] Bhavesh Bhatia MD Unavailable Justin Rollins MD Unavailable [phone] Rosmery Field DPT Unavailable + Kimberlyn Pantoja DPT Unavail able Cecilia Garland [employer] JOINTER Unavailable [phone] Katherine James MD Unavailable [phone] Ponce Hughes MD Unavailable [phone] Encounter Details Date Type Department Care Team (Late st Contact Info) Description 03/05/2020 E-Visit [facility]/ Physicians [address] [place] [address] Silvia Cortez MD [address] [place] [address] [address] RE: E-Visit Submission: COVID-19 Evaluation Social History Tobacco Use Types Packs/Day Years Used Date Smoking Tobacco: Former Cigarettes 1 32 1 975 - 2007 Smokeless Tobacco: Never Alcohol Use Standard Drinks/Week Comments Never 0 (1 standard drink = 0.6 oz pur e alcohol) socially AUDIT-C Answer Date Recorded Q1: How often do you have a drink containing alc ohol? 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 Gender Identity Not on file Sexual Orientation Not on file documented as of this encounter Ordered Prescriptions Prescription Sig Dispense Quantity Refills Last Filled Start Date End Date benzonatate (TESSALON) 200 mg capsule Take 1 capsule (200 mg total) by mouth 3 (three) times a day as needed for cough for up to 7 days 20 capsule 03/05/2020 0 documented in this encounter Plan of Treatment Not on file documented as of this encounter Visit Diagnoses Diagnosis Cough- Primary documented in this encounter Discontinued Medications Medication Sig Discontinue Reason Start Date End Da te benzonatate (TESSALON) 100 mg capsuleIndications:Cough Take 1 capsule (100 mg total) by mouth 3 (three) times a day as needed for cough Therapy completed 11/02/2019 03/05/2020 documented as of this encounter Additional Health Concerns Infection Onset Date Last Indicated Resolved Time COVID: Suspected 03/05/2020 03/10/2020 03/13/2020 8:47 PM CDT Respiratory Infection (ALTAGRACIA), contact + droplet Comment:Automatically added due to negative COVID-19 result. 03/13/2020 03/13/2020 03/27/2020 3:0 7 AM CDT documented as of this encounter Care Teams Finishing Wire Sawyer Relationship Specialty Start Date End Date Anderson Hartley MD [address] [place] [id number] [address] PCP - General Family Medicine 10/02/19 Matt German MD PhD [address] [place] [address], [place] [address] Referring Physician Neurosurgery 10/04/19 Leonid Carranza MD [address] [address] Medical Oncologist/Hematologis t Medical Oncology 10/04/19 09/13/24 Abimael Andrade MD [address] [address] Radiation Oncologist Radiation Oncology 10/07/19 Elizabeth Gutierrez, PhD [address] [address] Nurse Practitioner Radiation Oncology 11/14/19 09/23/20 Bhavesh Bhatia MD [address] [place] [address] Radiation Oncologist Radiation Oncology 05/07/20 Justin Rollins MD [address] [place] [address] Consulting Physician Cardiology 12/29/20 Rosmery Field DPT [address] [place] [address] Physical Therapist Physical Therapy 06/11/21 06/28/21 Kimberlyn Pantoja, CLOVERT [address] [place] [address] Physical Therapist Physical Therapy 06/29/21 09/07/21 Cecilia Garland, LILIA [address] [facility] [address] [place] [address] Speech Language Pathologist Speech Therapy 07/10/21 10/01/21 Katherine James MD [address] [facility] [address] [place] [address] Medical Oncologist/Hematologis t Hematology and Oncology 12/21/23 Ponce Hughes MD [address] [place] [address] Referring Physician Ophthalmology 01/31/25 documented as of this encounter
[2025-05-31 14:00] LABS: Hematocrit 43.7 % (37.0-47.0); Hemoglobin 14.4 g/dL (12.0-15.0); Immature Granulocyte Percent A 0.3 % (0-0.5); Lymphocytes Absolute Auto 1.82 K/mm3 (0.9-3.2); Mean Corpuscular HGB Conc 33.0 g/dl (32-36); Mean Corpuscular Hemoglobin 30.2 pg (26-34); Mean Corpuscular Volume 91.6 fl (80-100); Nucleated Red Blood Cells Absolute Auto 0.000 K/mm3 (0.0-0.012); Nucleated Red Blood Cells Perc 0.0 % (0.0-0.2); Platelet Count Result 152 k/mm3 (150-375); Red Blood Count 4.77 M/mm3 (4.2-5.4); White Blood Count 7.8 K/mm3 (4.5-10.0)
[2025-05-31 14:22] LABS: Alanine Aminotransferase 86 U/L (6-35); Albumin Level 4.2 g/dL (3.5-5.1); Alkaline Phosphatase 44 U/L (38-126); Anion Gap 8 mmol/L (4-12); Aspartate Amino Transferase 70 U/L (14-36); Bilirubin,Total 0.4 mg/dL (0.2-1.3); Blood Urea Nitrogen 29 mg/dL (7-17); Calcium 9.0 mg/dL (8.4-10.2); Carbon Dioxide 30 mmol/L (22-30); Chloride 100 mmol/L (98-107); Estimated Glomerular Filt Rate > 60; Glucose 92 mg/dL (65-110); Potassium 3.8 mmol/L (3.4-5.0); Sodium 138 mmol/L (137-145); Total Protein 7.0 g/dL (6.3-8.2)
== END 2025-05-31 13:12 | disposition home or self-care (01) ==
LOC: ANHLAB 13:12
PROVIDERS: Visit Provider Internal Medicine Hematology & Oncology
DX: C34.90 Malignant neoplasm of unspecified part of unspecified bronchus or lung (principal)
CPT/HCPCS: 36415; 80053; 85025

== ENCOUNTER 2025-07-05 13:55 | Outpatient (CLI) | payer MEDICARE, SELFPAY ==
--- NOTE | ~2025-07-05 | CT_ITS ---
EXAMINATION: CT chest abdomen pelvis w con DATE: 07/05/2025 15:08 INDICATION: Melena neoplasm of lung. TECHNIQUE: Computed tomography (CT) of the chest, abdomen, and pelvis was performed with 100 mL Omnipaque 350 intravenous contrast. Automated exposure control and iterative reconstruction technique were employed. The dose-length product was 403.82 mGy-cm. COMPARISON: CTA neck 01/21/2023 FINDINGS: CHEST CT: There is mild emphysema. There is a 1.4 cm nodule in right lung upper lobe. There is mild perforation fibrosis in anterior left lung. No pleural effusion. The heart size is normal. There are coronary artery calcifications. No pericardial effusion. Calcified mediastinal lymph nodes are consistent with old granulomatous disease. There are surgical changes in left breast and left axilla. There is a small sliding hiatal hernia. There are old healed right rib fractures. There is moderate thoracic spondylosis. There is mild chronic anterior wedging of T11 and T12 vertebral bodies. ABDOMEN/PELVIS CT: The liver, gallbladder, spleen, pancreas, adrenal glands, and kidneys are normal. There are no dilated loops of bowel. The appendix is not visualized. There are no pathologically enlarged lymph nodes. There is no free intraperitoneal fluid. There is a left hip bipolar hemiarthroplasty. There is severe lumbar spondylosis. IMPRESSION: 1. 1.4 cm nodule in right lung upper lobe that measured 1.5 cm on 01/21/23, consistent with primary bronchogenic carcinoma. No evidence of metastatic disease. Reviewed, dictated and finalized at location E. IMPRESSION: 1. 1.4 cm nodule in right lung upper lobe that measured 1.5 cm on 01/21/23, cons istent with primary bronchogenic carcinoma. No evidence of metastatic disease.
--- NOTE | ~2025-07-05 | MR_ITS ---
EXAMINATION: MR brain/brain stem wo/w con DATE: 07/05/2025 14:43 INDICATION: Malignant neoplasm of lung TECHNIQUE: Magnetic resonance imaging (MRI) of the brain and brainstem was performed without and with 10 mL Multihance intravenous contrast. Sequences included sagittal and axial T1-weighted SE, axial diffusion-weighted FS SE, , axial T2-weighted FLAIR, and axial T2-weighted FSE. Postcontrast axial and coronal T1-weighted SE was obtained. Apparent diffusion coefficient (ADC) maps were created. COMPARISON: Head CT and CT angiogram dated 01/21/2023 and brain MR dated 01/22/2023 FINDINGS: Again seen are changes of a prior left parietal craniotomy. There is an unchanged small region of underlying encephalomalacia with curvilinear/gyriform low signal intensity on the susceptibility weighted images which could be due to laminar necrosis in the setting of chronic infarct or more likely old blood products in the setting of prior surgery potentially for resection of a reported metastatic brain lesion reportedly in September 2019. There are a couple additional small regions of encephalomalacia with similar curvilinear susceptibility artifact in the more anterior left frontal lobe which certainly could be due to sequela of old infarcts or potentially treated malignancy with clinical history also describing chemotherapy and radiation treatment later and 2019 following the tumor resection. There are no areas of restricted diffusion to suggest acute infarction. There are a few additional unchanged small foci of susceptibility artifact in the left and right cerebral hemispheres consistent with sequela of chronic microhemorrhage. No acute intracranial hemorrhage or abnormal intracranial mass lesion. No abnormally enhancing brain lesions identified. Confluent regions of of periventricular predominant nonspecific increased T2-weighted signal intensity in the cerebral white matter consistent with sequela of chronic small vessel ischemic disease.. There are no intraparenchymal signal abnormalities seen on the other pulse sequences. The ventricles are symmetric and normal in size. There are no abnormal extra-axial fluid collections. Flow voids are seen in the cerebral arteries on the T2-weight ed sequences consistent with their expected patency. Changes of bilateral intraocular lens replacement. Small bilateral mastoid effusions. Low signal intensity osteoma along the outer table of the calvarium at the vertex. Visualized orbits and soft tissues are unremarkable. IMPRESSION: 1. No acute intracranial process or abnormally enhancing brain lesions. 2. 3 regions of encephalomalacia with gyriform pattern of susceptibility artifact which could represent sequela of old infarcts or more likely related to metastatic disease reportedly treated in 2019. Correlate with clinical history and any prior outside imaging. 3. Prominent periventricular predominant white matter T2 hyperintensity consistent with chronic small vessel ischemic disease. 4. A few unchanged smaller foci of scattered susceptibility artifact in the bilateral cerebral hemispheres consistent with sequela of chronic microhemorrhage as can be seen with hypertension. Reviewed, dictated and finalized at location A. IMPRESSION: 1. No acute intracranial process or abnormally enhancing brain lesions. 2. 3 regions of encephalomalacia with gyriform pattern of susceptibility artifa ct which could represent sequela of old infarcts or more likely related to meta static disease reportedly treated in 2019. Correlate with clinical history and any prior outside imaging. 3. Prominent periventricular predominant white matter T2 hyperintensity consist ent with chronic small vessel ischemic disease. 4. A few unchanged smaller foci of scattered susceptibility artifact in the radha ateral cerebral hemispheres consistent with sequela of chronic microhemorrhage as can be seen with hypertension.
== END 2025-07-05 13:56 | disposition home or self-care (01) ==
PROVIDERS: PCP Family Medicine; Visit Provider Internal Medicine Hematology & Oncology
DX: C34.90 Malignant neoplasm of unspecified part of unspecified bronchus or lung (principal); G93.89 Other specified disorders of brain; R91.1 Solitary pulmonary nodule; R90.82 White matter disease, unspecified; R90.89 Other abnormal findings on diagnostic imaging of central nervous system
CPT/HCPCS: 70553; 71260; 74177; A9577; Q9967

== ENCOUNTER 2025-08-02 10:00 | Outpatient (RCR) | payer OTHER, SELFPAY ==
--- NOTE | 2025-05-31 11:14 | STOPEVAL1 ---
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 Over the past few years she has experienced an increase in seizure activity which has results in some changes in speech fluency and intelligibility. She feels it has impacted her communication with others in daily exchanges and when speaking on the phone. Orders have been received to complete a speech evaluation and treatment. Reported Pain Level Pain Score 0: Self Report Assessment ST Clinical Summary The patient is a 65-year-old female with a past history of a craniotomy in September 2019. Over the past few years she has experienced an increase in seizure activity which has results in some changes in speech fluency and intelligibility. She feels it has impacted her communication with others in daily exchanges and when speaking on the phone. Orders have been received to complete a speech evaluation and treatment. The patient was administered portions of the [facility] Communication Evaluation and the [facility] Dysarthria Assessment. Results were as follows. [place] Communication Evaluation: 1.) Auditory Comprehension: Within Normal Limits all subtests. 2.) Written Comprehension: Within Normal Limits all subtests 3.) Graphic Expression: Within Normal Limits all subtests. 4.) Verbal Expression: Within Normal Limits all subtests. Minimal difficulty with divergent naming for abstract categories. [facility] Dysarthria Assessment: 1.) Repetition words 100%, Repetition sentences and phrases 80% ( with specific sounds: See below) Word Fluency: Average 15 words 100%, Sentence Competition and Responsive Naming 100%. Noted dysarthria at sentence 90% and conversation 80% level secondary to rate of speech and decreased articulation. Specifically, difficulty clearly enunciating fricatives and affricative /s/, /sh/, /z/, /ch/, /th/, /f/, and /v/ at word, phrase, and in sentences. Recommend Outpatient Speech Therapy Services 1x a week x 10 visits to address dysarthria. Plan of Care Interventions Treatment of Speech ST Services Indicated Yes Treatment Frequency and 1x a week x 10 visits. Duration These treatments will address the objective and functional deficits as defined above. The patient will be advanced safely and appropriately in order for the patient to progress towards his/her prior level of function. Additional exercises will be introduced and as well as a comprehensive home exercise program upon discharge, if needed, ?to ensure carryover of functional gains achieved in the clinic. This treatment plan has been reviewed and agreement upon by the patient.
--- NOTE | 2025-05-31 11:15 | OPREHPOC ---
Outpatient Therapy Plan of Care This is a Multidisciplinary Plan of Care that may contain components documented by all disciplines (PT, OT, and ST.) ST Problem 1 ST Problem #[address] Goal 1 Goal / Goal Update The patient will participate in home programming to improve carry over/generalization of skills to the home environment Target Visit [address] Problem #[address] Goal 1 Goal / Goal Update Intelligibility: 1. The patient will produce sentences with 85% intelligibility using compensatory techniques(slow rate, one word at a time, and over articulation) and minimal cues. 2. The patient will produce 3-4 conversational speech exchanges with 85% intelligibility using compensatory techniques(slow rate, one word at a time, and over articulation) and minimal cues. 3. The patient will be compliant with a HEP 90% 4. The patient will utilize over articulation techniques for production of fricatives and affricative (s, z, sh, ch, f, v, and th) in sentence and conversation 85% minimal cues. Target Visit 10
--- NOTE | 2025-07-05 10:13 | PCSTNOTE ---
Patient called & cancelled scheduled appointment this date due to car troubles
--- NOTE | 2025-08-02 11:00 | STOPDC ---
Assessment and note entered by Lauryn Presley TEST DEPARTMENT HELPER Evaluation Information Assessment Status Discharge Reported Pain Level Pain Score 0: Self Report Assessment ST Clinical Summary Initial Evaluation: The patient is a 65-year-old female with a past history of a craniotomy in September 2019. Over the past few years she has experienced an increase in seizure activity which has results in some changes in speech fluency and intelligibility. She feels it has impacted her communication with others in daily exchanges and when speaking on the phone. Orders have been received to complete a speech evaluation and treatment. The patient was administered portions of the [facility] Communication Evaluation and the [facility] Dysarthria Assessment. Results were as follows. [facility] Communication Evaluation: 1.) Auditory Comprehension: Within Normal Limits all subtests. 2.) Written Comprehension: Within Normal Limits all subtests 3.) Graphic Expression: Within Normal Limits all subtests. 4.) Verbal Expression: Within Normal Limits all subtests. Minimal difficulty with divergent naming for abstract categories. [facility] Dysarthria Assessment: 1.) Repetition words 100%, Repetition sentences and phrases 80% ( with specific sounds: See below) Word Fluency: Average 15 words 100%, Sentence Competition and Responsive Naming 100%. Noted dysarthria at sentence 90% and conversation 80% level secondary to rate of speech and decreased articulation. Specifically, difficulty clearly enunciating fricatives and affricatives /s/, /sh/, /z/, /ch/, /th/, /f/, and /v/ at word, phrase, and in sentences. Recommend Outpatient Speech Therapy Services 1x a week x 10 visits to address dysarthria. Discharge 08/02/25: Upon discharge the patient is producing intelligible speech in sentence and conversation exchange 90-100% intelligible with compensatory techniques. Plan of Care ST Services Indicated No
== END 2025-08-02 13:31 | disposition home or self-care (01) ==
LOC: ANHST 10:00
PROVIDERS: PCP Family Medicine; Visit Provider Family Medicine
DX: R47.9 Unspecified speech disturbances (principal); Z98.890 Other specified postprocedural states
CPT/HCPCS: 92507; 92523